=== PATIENT | female | born 1975 | race Caucasian/White ===

== ENCOUNTER 2016-09-06 18:40 | Emergency (ER) | payer MEDICAID, MEDICARE ==
[2016-09-06] MEDS ORDERED: NORMAL SALINE 1000 ML 1,000 ML IV ONE (18:57)
[2016-09-06] MEDS ORDERED: MECLIZINE HCL 25 MG TABLET PO ONE ×2 (18:58→19:52)
--- NOTE | 2016-09-06 19:00 | ER Document Report ---
ED Medical Screen (RME) - General Chief Complaint: Dizziness Stated Complaint: DIZZINESS Time Seen by Provider: 09/06/16 18:57 TRAVEL OUTSIDE OF THE U.S. IN LAST 30 DAYS: No - HPI Notes: 09/06/16 19:00 Patient recently moved from [place] with diagnosis stage IV lung cancer not currently undergoing any chemotherapy or radiation does not have a primary care physician yet coming in for dizziness starting this morning. States symptoms are similar to her vertigo in the past. - Related Data Allergies/Adverse Reactions: aspirin Allergy (Verified 09/06/16 18:48) Penicillins Allergy (Verified 09/06/16 18:48) Past Medical History Renal/ Medical History: Denies: Hx Peritoneal Dialysis Review of Systems - Review of Systems Constitutional: Other - dizzines Physical Exam - Vital signs Vitals: Temp Pulse Resp BP Pulse Ox 98.1 F 87 24 H 141/72 H 95 09/06/16 18:48 09/06/16 18:48 09/06/16 18:48 09/06/16 18:48 09/06/16 18:48 - HEENT Head: Normocephalic Eyes: Normal Conjunctiva: Normal Pupils: PERRL Course - Vital Signs Vital signs: Temp Pulse Resp BP Pulse Ox 98.1 F 87 24 H 141/72 H 95 09/06/16 18:48 09/06/16 18:48 09/06/16 18:48 09/06/16 18:48 09/06/16 18:48
--- NOTE | 2016-09-06 19:00 | ER Document Report ---
ED General - General Chief Complaint: Dizziness Stated Complaint: DIZZINESS Time Seen by Provider: 09/06/16 18:57 TRAVEL OUTSIDE OF THE U.S. IN LAST 30 DAYS: No - HPI Notes: Patient recently moved from [place] with diagnosis stage IV lung cancer not currently undergoing any chemotherapy or radiation does not have a primary care physician yet coming in for dizziness starting this morning. States symptoms are similar to her vertigo in the past. - Related Data Allergies/Adverse Reactions: aspirin Allergy (Verified 09/06/16 18:48) Penicillins Allergy (Verified 09/06/16 18:48) Past Medical History - Social History Patient has suicidal ideation: No Patient has homicidal ideation: No Renal/ Medical History: Denies: Hx Peritoneal Dialysis Review of Systems - Review of Systems Constitutional: No symptoms reported EENT: No symptoms reported Cardiovascular: No symptoms reported Respiratory: No symptoms reported Gastrointestinal: No symptoms reported Genitourinary: No symptoms reported Female Genitourinary: No symptoms reported Musculoskeletal: No symptoms reported Skin: No symptoms reported Hematologic/Lymphatic: No symptoms reported Neurological/Psychological: Other - Dizziness Physical Exam - Vital signs Vitals: Temp Pulse Resp BP Pulse Ox 98.1 F 87 24 H 141/72 H 95 09/06/16 18:48 09/06/16 18:48 09/06/16 18:48 09/06/16 18:48 09/06/16 18:48 Interpretation: Normal - HEENT Pupils: PERRL - Respiratory Respiratory status: No respiratory distress Chest status: Nontender Breath sounds: Normal Chest palpation: Normal - Cardiovascular Rhythm: Regular Heart sounds: Normal auscultation Murmur: No - Back Back: Normal, Nontender - Extremities General upper extremity: Normal inspection, Nontender, Normal color, Normal ROM , Normal temperature General lower extremity: Normal inspection, Nontender, Normal color, Normal ROM , Normal temperature, Normal weight bearing. No: Dilan's sign Course - Vital Signs Vital signs: Temp Pulse Resp BP Pulse Ox 98.1 F 87 24 H 141/72 H 95 09/06/16 18:48 09/06/16 18:48 09/06/16 18:48 09/06/16 18:48 09/06/16 18:48
[2016-09-06 19:41] LABS: ABSOLUTE BASOPHILS # (AUTO) 0.1 10^3/uL (0.0-0.2); ABSOLUTE EOSINOPHILS # (AUTO) 0.2 10^3/uL (0.0-0.6); ABSOLUTE LYMPHOCYTES (AUTO) 3.2 10^3/uL (0.5-4.7); ABSOLUTE MONOCYTES (AUTO) 0.8 10^3/uL (0.1-1.4); ABSOLUTE NEUT (AUTO) 8.4 10^3/uL (1.7-8.2); BASOPHILS % (AUTO) 0.9 % (0-2); EOSINOPHILS % (AUTO) 1.4 % (0-6); HEMATOCRIT 42.9 % (36.0-47.0); HEMOGLOBIN 13.8 g/dL (12.0-15.5); HGB HCT DIFFERENCE -1.5; LYMPHOCYTES % (AUTO) 25.2 % (13-45); MEAN CORPUSCULAR HEMOGLOBIN 27.4 pg (27.0-33.4); MEAN CORPUSCULAR HGB CONC 32.2 g/dL (32.0-36.0); MEAN CORPUSCULAR VOLUME 85 fl (80-97); MONOCYTES % (AUTO) 6.3 % (3-13); RED BLOOD COUNT 5.04 10^6/uL (3.72-5.28); RED CELL DISTRIBUTION WIDTH 13.5 % (11.5-14.0); SEGMENTED NEUTROPHILS % (AUTO) 66.2 % (42-78); WHITE BLOOD COUNT 12.7 10^3/uL (4.0-10.5)
--- NOTE | 2016-09-06 19:53 | ER Document Report ---
ED General - General Chief Complaint: Dizziness Stated Complaint: DIZZINESS Time Seen by Provider: 09/06/16 18:57 Notes: Patient is a 41-year-old female who comes emergency department for chief complaint of lightheadedness and a dizziness sensation, she states that she has frequent vertigo but slightly worse than usual. She denies nausea or vomiting, head injury, fever. She states she has a headache across the front of her head and wrapping around to the back. Past medical history of stage IV lung cancer, she is not on chemotherapy or radiation, she has opted out of treatment, she is also type II diabetic, insulin-dependent, and has been out of insulin for 3 days. She is new to the area from [place], here with family. TRAVEL OUTSIDE OF THE U.S. IN LAST 30 DAYS: No - Related Data Allergies/Adverse Reactions: aspirin Allergy (Verified 09/06/16 18:48) Penicillins Allergy (Verified 09/06/16 18:48) Past Medical History - General Information source: Patient - Social History Smoking Status: Former Smoker Frequency of alcohol use: None Drug Abuse: None Lives with: Family Family History: Reviewed & Not Pertinent Patient has suicidal ideation: No Patient has homicidal ideation: No Endocrine Medical History: Reports: Hx Diabetes Mellitus Type 2 Renal/ Medical History: Denies: Hx Peritoneal Dialysis Malignancy Medical History: Reports: Hx Lung Cancer Surgical Hx: Negative - Immunizations Immunizations up to date: Yes Hx Diphtheria, Pertussis, Tetanus Vaccination: Yes Review of Systems - Review of Systems Constitutional: No symptoms reported EENT: No symptoms reported Cardiovascular: No symptoms reported Respiratory: No symptoms reported Gastrointestinal: No symptoms reported Genitourinary: No symptoms reported Female Genitourinary: No symptoms reported Musculoskeletal: No symptoms reported Skin: No symptoms reported Hematologic/Lymphatic: No symptoms reported Neurological/Psychological: See HPI Physical Exam - Vital signs Vitals: Temp Pulse Resp BP Pulse Ox 98.1 F 87 24 H 141/72 H 95 09/06/16 18:48 09/06/16 18:48 09/06/16 18:48 09/06/16 18:48 09/06/16 18:48 Interpretation: Normal - General General appearance: Appears well, Alert In distress: None - alert and well appearing - HEENT Head: Normocephalic, Atraumatic Eyes: Normal Conjunctiva: Normal Extraocular movements intact: Yes Eyelashes: Normal Pupils: PERRL Nasal: Normal Mouth/Lips: Normal Mucous membranes: Normal Pharynx: Normal Neck: Normal - Respiratory Respiratory status: No respiratory distress Chest status: Nontender Breath sounds: Normal Chest palpation: Normal - Cardiovascular Rhythm: Regular Heart sounds: Normal auscultation Murmur: No - Abdominal Inspection: Normal Distension: No distension Bowel sounds: Normal Tenderness: Nontender. No: Tender Organomegaly: No organomegaly - Back Back: Normal, Nontender - Extremities General upper extremity: Normal inspection, Nontender, Normal color, Normal ROM , Normal temperature General lower extremity: Normal inspection, Nontender, Normal color, Normal ROM , Normal temperature, Normal weight bearing. 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 No nystagmus. No instability. No vomiting. Patient does not appear to be in any distress. After meclizine, IV fluids, patient was reevaluated and she was significantly improved. No dizziness with head turning, Only became slightly lightheaded when standing, orthostatics are normal. Workup is unremarkable. Patient was also given Ativan. Patient stating she feels 100%, states she is ready to leave. I did discuss CAT scan for potential metastasis to the brain, however because patient does not have headache, symptoms have completely resolved, this will not be performed, patient does not want this to be performed, patient given scripts for home, she states she has outpatient primary followup, discussed return precautions, patient states understanding and agreement. - Vital Signs Vital signs: Temp Pulse Resp BP Pulse Ox 98 F 88 18 149/87 H 99 09/06/16 22:28 09/06/16 22:28 09/06/16 22:28 09/06/16 22:28 09/06/16 22:28 - Laboratory Result Diagrams: 09/06/16 19:27 09/06/16 19:27 Laboratory results interpreted by me: 09/06/16 09/06/16 19:27 19:27 WBC 12.7 H Absolute Neutrophils 8.4 H Glucose 121 H Discharge - Discharge Clinical Impression: Dizziness Condition: Stable Disposition: HOME, SELF-CARE Instructions: Antinausea Medication ([facility]), Dizziness ([facility]), Meclizine ([facility]), Vertigo ([facility]) Additional Instructions: Workup does not show any concerning abnormalities. Neurological exam is normal. Symptoms most consistent with vertigo. Take the meclizine as prescribed, take the Ativan if needed, follow-up with primary care referral return to emergency department for any concerning. Worsening symptoms including returned dizziness, headache, vomiting, or any other concerning symptoms. Prescriptions: Lorazepam [Ativan 0.5 mg Tablet] 0.5 mg PO Q4 PRN #12 tab PRN Reason: Meclizine HCl [Antivert 25 mg Tablet] 25 mg PO TID PRN #21 tablet PRN Reason: Forms: Elevated Blood Pressure
[2016-09-06 19:59] LABS: ALANINE AMINOTRANSFERASE 24 U/L (9-52); ALBUMIN 3.5 g/dL (3.5-5.0); ALKALINE PHOSPHATASE 68 U/L (38-126); ANION GAP 9 (5-19); ASPARTATE AMINO TRANSFERASE 14 U/L (14-36); BILIRUBIN,DIRECT 0.3 mg/dL (0.0-0.4); BILIRUBIN,TOTAL 0.4 mg/dL (0.2-1.3); BLOOD UREA NITROGEN 10 mg/dL (7-20); CALCIUM 8.5 mg/dL (8.4-10.2); CARBON DIOXIDE 24 mmol/L (22-30); CHLORIDE 104 mmol/L (98-107); CREATININE RESULT 0.59 mg/dL (0.52-1.25); GLUCOSE 121 mg/dL (75-110); LIPASE 79.6 U/L (23-300); POTASSIUM 4.1 mmol/L (3.6-5.0); SODIUM 137.1 mmol/L (137-145); TOTAL PROTEIN 6.6 g/dL (6.3-8.2)
[2016-09-06] MEDS ORDERED: LORAZEPAM 1 MG TABLET PO ONE (21:16)
[2016-09-06 22:31] VITALS: BP 149/87
== END 2016-09-06 22:32 | disposition home or self-care (01) ==
LOC: ER 18:40
DX: R42 Dizziness and giddiness (principal); R51 Headache; E11.9 Type 2 diabetes mellitus without complications; Z79.4 Long term (current) use of insulin; C34.90 Malignant neoplasm of unspecified part of unspecified bronchus or lung; Z88.6 Allergy status to analgesic agent; Z88.0 Allergy status to penicillin; Z87.891 Personal history of nicotine dependence
CPT/HCPCS: 99284; 96360; 36415; 83690; 85025; 80053; J7030

== ENCOUNTER 2017-04-04 09:01 | Emergency (ER) | payer MEDICAID ==
[2017-04-04] MEDS ORDERED: NORMAL SALINE 1000 ML 1,000 ML IV ONE (10:12)
[2017-04-04] MEDS ORDERED: ONDANSETRON HCL INJ/PF 4 MG/2 ML SDV IV ONE (10:12)
[2017-04-04] MEDS ORDERED: MORPHINE SULFATE 10 MG/ML INJ IV ONE (10:13)
--- NOTE | 2017-04-04 10:13 | ER Document Report ---
ED Medical Screen (RME) - General Chief Complaint: Abdominal Pain Stated Complaint: ABDOMINAL PAIN Time Seen by Provider: 04/04/17 10:02 Mode of Arrival: Wheelchair Information source: Patient Notes: Patient is a 42 year old female with Stage 3 Lung Cancer and diabetes presents to the emergency department complaining of left upper quadrant abdominal pain onset months ago worsening 2 days ago. Patient describes her pain as waxing and waning. Patient also complains of vomiting, blood in stool and diaphoresis. At bedside patient is moaning and diaphoretic. I have greeted and performed a rapid initial assessment of this patient. A comprehensive ED assessment and evaluation of the patient, analysis of test results and completion of the medical decision making process will be conducted by additional ED providers. TRAVEL OUTSIDE OF THE U.S. IN LAST 30 DAYS: No - Related Data Allergies/Adverse Reactions: aspirin Allergy (Verified 09/06/16 18:48) Penicillins Allergy (Verified 09/06/16 18:48) Past Medical History Endocrine Medical History: Reports: Hx Diabetes Mellitus Type 2 Renal/ Medical History: Denies: Hx Peritoneal Dialysis Malignancy Medical History: Reports: Hx Lung Cancer Past Surgical History: Reports: Hx Section - Immunizations Immunizations up to date: Yes Hx Diphtheria, Pertussis, Tetanus Vaccination: Yes Physical Exam - Vital signs Vitals: Temp Pulse Resp BP Pulse Ox 98.4 F 87 24 H 152/80 H 100 04/04/17 09:24 04/04/17 09:24 04/04/17 09:24 04/04/17 09:24 04/04/17 09:24 - Notes Notes: GENERAL: Alert, interacts well. No acute distress. LUNGS: Clear to auscultation bilaterally, no wheezes, rales, or rhonchi. No respiratory distress. HEART: Regular rate and rhythm. No murmurs, gallops, or rubs. ABDOMEN: Exquisitely tender to palpation in the LUQ. Course - Vital Signs Vital signs: Temp Pulse Resp BP Pulse Ox 97.9 F 105 H 16 102/78 97 04/04/17 09:51 04/04/17 09:51 04/04/17 09:51 04/04/17 09:51 04/04/17 09:51 Scribe Documentation - Scribe Written by Roxanna:: Roxanna Brooks, 04/04/2017 10:13 acting as scribe for :: Stepan
[2017-04-04 10:36] LABS: ABSOLUTE EOSINOPHILS # (AUTO) 0.3 10^3/uL (0.0-0.6); ABSOLUTE LYMPHOCYTES (AUTO) 3.8 10^3/uL (0.5-4.7); ABSOLUTE MONOCYTES (AUTO) 0.8 10^3/uL (0.1-1.4); ABSOLUTE NEUT (AUTO) 8.4 10^3/uL (1.7-8.2); BASOPHILS % (AUTO) 0.3 % (0-2); EOSINOPHILS % (AUTO) 2.3 % (0-6); HEMATOCRIT 43.1 % (36.0-47.0); HEMOGLOBIN 14.4 g/dL (12.0-15.5); LYMPHOCYTES % (AUTO) 28.5 % (13-45); MEAN CORPUSCULAR HEMOGLOBIN 27.9 pg (27.0-33.4); MEAN CORPUSCULAR HGB CONC 33.5 g/dL (32.0-36.0); MEAN CORPUSCULAR VOLUME 83 fl (80-97); MONOCYTES % (AUTO) 6.2 % (3-13); PLATELET COUNT 261 10^3/uL (150-450); RED BLOOD COUNT 5.17 10^6/uL (3.72-5.28); RED CELL DISTRIBUTION WIDTH 13.3 % (11.5-14.0); SEGMENTED NEUTROPHILS % (AUTO) 62.7 % (42-78); TOTAL CELLS COUNTED % (AUTO) 100 %; WHITE BLOOD COUNT 13.4 10^3/uL (4.0-10.5)
[2017-04-04 11:00] LABS: ALANINE AMINOTRANSFERASE 26 U/L (9-52); ALBUMIN 3.9 g/dL (3.5-5.0); ALKALINE PHOSPHATASE 70 U/L (38-126); ANION GAP 7 (5-19); ASPARTATE AMINO TRANSFERASE 37 U/L (14-36); BILIRUBIN,DIRECT 0.3 mg/dL (0.0-0.4); BILIRUBIN,TOTAL 0.4 mg/dL (0.2-1.3); BLOOD UREA NITROGEN 11 mg/dL (7-20); CALCIUM 9.3 mg/dL (8.4-10.2); CARBON DIOXIDE 29 mmol/L (22-30); CHLORIDE 101 mmol/L (98-107); GLUCOSE 269 mg/dL (75-110); LIPASE 110.9 U/L (23-300); MAGNESIUM 1.8 mg/dL (1.6-2.3); POTASSIUM 4.6 mmol/L (3.6-5.0); SODIUM 137.1 mmol/L (137-145); TOTAL PROTEIN 7.1 g/dL (6.3-8.2)
[2017-04-04] MEDS ORDERED: DIPHENHYDRAMINE HCL 50 MG/ML VIAL IV ONE (11:41)
--- NOTE | 2017-04-04 12:02 | EKG REPORT ---
SEVERITY:- ABNORMAL ECG - SINUS RHYTHM : Confirmed by: Nahun Sousa 04-Apr-2017 12:02:18
--- NOTE | 2017-04-04 12:23 | RADIOLOGY REPORT (SQ) ---
EXAM DESCRIPTION: KUB/ABDOMEN (SINGLE VIEW) COMPLETED DATE/TIME: 04/04/2017 12:16 pm REASON FOR STUDY: abd pain distension COMPARISON: None. NUMBER OF VIEWS: One view. TECHNIQUE: Supine radiographic image of the abdomen acquired. LIMITATIONS: None. FINDINGS: BOWEL GAS PATTERN: Normal bowel gas pattern. No dilated loops. CALCIFICATIONS: No suspicious calcifications. SOFT TISSUES: No gross mass or suggestion of organomegaly. HARDWARE: None in the abdomen. BONES: No acute fracture. No worrisome bone lesions. OTHER: No other significant finding. IMPRESSION: NO RADIOGRAPHIC EVIDENCE FOR ACUTE ABDOMINAL DISEASE. TECHNICAL DOCUMENTATION: JOB ID: [id number] [employer]- All Rights Reserved
--- NOTE | 2017-04-04 12:37 | ER Document Report ---
ED General - General Chief Complaint: Abdominal Pain Stated Complaint: ABDOMINAL PAIN Time Seen by Provider: 04/04/17 10:02 Mode of Arrival: Wheelchair Information source: Patient Notes: 42-year-old female presents with complaints of left upper quadrant abdominal pain. Patient notes symptoms have been ongoing for the past month but over the past few days it has worsened. She notes it is a gnawing sensation in the abdomen. She denies any fevers or chills denies any vomiting episodes Patient notes clot like blood in stool TRAVEL OUTSIDE OF THE U.S. IN LAST 30 DAYS: No - HPI Onset: Other Onset/Duration: Persistent, Worse Quality of pain: Cramping Severity: Mild Pain Level: 1 Associated symptoms: Other Exacerbated by: Denies Relieved by: Denies Similar symptoms previously: No Recently seen / treated by doctor: No - Related Data Allergies/Adverse Reactions: aspirin Allergy (Verified 09/06/16 18:48) Penicillins Allergy (Verified 09/06/16 18:48) Past Medical History - General Information source: Patient - Social History Smoking Status: Former Smoker Cigarette use (# per day): No Chew tobacco use (# tins/day): No Smoking Education Provided: No Frequency of alcohol use: None Drug Abuse: None Family History: Reviewed & Not Pertinent Patient has suicidal ideation: No Patient has homicidal ideation: No - Past Medical History Cardiac Medical History: Reports: Hx Hypertension Endocrine Medical History: Reports: Hx Diabetes Mellitus Type 1, Hx Diabetes Mellitus Type 2 Renal/ Medical History: Denies: Hx Peritoneal Dialysis Malignancy Medical History: Reports: Hx Lung Cancer Past Surgical History: Reports: Hx Section - Immunizations Immunizations up to date: Yes Hx Diphtheria, Pertussis, Tetanus Vaccination: Yes Review of Systems - Review of Systems Notes: REVIEW OF SYSTEMS: CONSTITUTIONAL : Denies fever, chills, or sweats. Denies recent illness. EENT: Denies eye, ear, throat, or mouth pain or symptoms. Denies nasal or sinus congestion or discharge. Denies throat, tongue, or mouth swelling or difficulty swallowing. CARDIOVASCULAR: Denies chest pain. Denies palpitations or racing or irregular heart beat. Denies ankle edema. RESPIRATORY: Denies cough, cold, or chest congestion. Denies shortness of breath, difficulty breathing, or wheezing. GASTROINTESTINAL: abd pain , rectal blood clots GENITOURINARY: Denies difficulty urinating, painful urination, burning, frequency, blood in urine, or discharge. FEMALE GENITOURINARY: Denies vaginal bleeding, heavy or abnormal periods, irregular periods. Denies vaginal discharge or odor. MUSCULOSKELETAL: Denies back or neck pain or stiffness. Denies joint pain or swelling. SKIN: Denies rash, lesions or sores. HEMATOLOGIC : Denies easy bruising or bleeding. LYMPHATIC: Denies swollen, enlarged glands. NEUROLOGICAL: Denies confusion or altered mental status. Denies passing out or loss of consciousness. Denies dizziness or lightheadedness. Denies headache. Denies weakness or paralysis or loss of use of either side. Denies problems with gait or speech. Denies sensory loss, numbness, or tingling. Denies seizures. PSYCHIATRIC: Denies anxiety or stress. Denies depression, suicidal ideation, or homicidal ideation. ALL OTHER SYSTEMS REVIEWED AND NEGATIVE. PHYSICAL EXAMINATION: GENERAL: Obese female in mild acute distress moaning HEAD: Atraumatic, normocephalic. EYES: Pupils equal round and reactive to light, extraocular movements intact, conjunctiva are normal. ENT: Nares patent, oropharynx clear without exudates. Moist mucous membranes. NECK: Normal range of motion, supple without lymphadenopathy LUNGS: Breath sounds clear to auscultation bilaterally and equal. No wheezes rales or rhonchi. HEART: Regular rate and rhythm without murmurs ABDOMEN: Tender distended left upper quadrant Female : deferred Musculoskeletal: Normal range of motion, no pitting or edema. No cyanosis. NEUROLOGICAL: Cranial nerves grossly intact. Normal speech, normal gait. Normal sensory, motor exams PSYCH: Normal mood, normal affect. SKIN: Warm, Dry, normal turgor, no rashes or lesions noted. Dictation was performed using [employer] voice recognition software Physical Exam - Vital signs Vitals: Temp Pulse Resp BP Pulse Ox 98.4 F 87 24 H 152/80 H 100 04/04/17 09:24 04/04/17 09:24 04/04/17 09:24 04/04/17 09:24 04/04/17 09:24 Course - Re-evaluation Re-evalutation: 04/04/17 12:37 Lab work notes mild white count elevation, and emergent x-ray was performed given my concerns for possible perforation since patient was complaining of distended abdomen this noted no free air, CTs are pending at this time 04/04/17 13:[address] noted no significant abnormality, I reevaluate patient she feels much better wishes to go home. Nodule was noted on the right upper lobe which knows about and is planning to receive chemo and radiation for After performing a Medical Screening Examination, I estimate there is LOW risk for ACUTE APPENDICITIS, BOWEL OBSTRUCTION, ACUTE CHOLECYSTITIS, PERFORATED DIVERTICULITIS, INCARCERATED HERNIA, PANCREATITIS, PELVIC INFLAMMATORY DISEASE, PERFORATED ULCER, ECTOPIC , or TUBO-OVARIAN ABSCESS, thus I consider the discharge disposition reasonable. Also, there is no evidence or peritonitis , sepsis, or toxicity. I have reevaluated this patient multiple times and no significant life threatening changes are noted. The patient and I have discussed the diagnosis and risks, and we agree with discharging home with close follow-up with the understanding that symptoms and presentations can change. We also discussed returning to the Emergency Department immediately if new or worsening symptoms occur. We have discussed the symptoms which are most concerning (e.g., bloody stool, fever, changing or worsening pain, vomiting) that necessitate immediate return. - Vital Signs Vital signs: Temp Pulse Resp BP Pulse Ox 97.9 F 105 H 16 102/78 96 04/04/17 09:51 04/04/17 09:51 04/04/17 09:51 04/04/17 09:51 04/04/17 11:27 - Laboratory Result Diagrams: 04/04/17 10:18 04/04/17 10:18 Laboratory results interpreted by me: 04/04/17 04/04/17 10:18 10:18 WBC 13.4 H Absolute Neutrophils 8.4 H Glucose 269 H AST 37 H - Diagnostic Test Radiology reviewed: Image reviewed, Reports reviewed Discharge - Discharge Clinical Impression: Pulmonary nodule, Epigastric pain Stomach ulcer Qualifiers: Gastric ulcer chronicity: acute Gastric ulcer complication status: without hemorrhage or perforation Qualified Code(s): K25.3 - Acute gastric ulcer without hemorrhage or perforation Condition: Stable Disposition: HOME, SELF-CARE Instructions: Abdominal Pain ([facility]) Prescriptions: Famotidine [Pepcid 20 mg Tablet] 20 mg PO DAILY #30 tablet Oxycodone HCl/Acetaminophen [Percocet 5-325 mg Tablet] 1 tab PO Q6 #15 tab Referrals: EMMETT LEMON MD [ACTIVE STAFF] - Follow up in 3-5 days
[2017-04-04] MEDS ORDERED: HYDROMORPHONE HCL INJ/PF 2 MG/ML AMPULE IV ONE (12:50)
--- NOTE | 2017-04-04 13:28 | RADIOLOGY REPORT (SQ) ---
EXAM DESCRIPTION: CT ABD/PELVIS WITH IV ONLY COMPLETED DATE/TIME: 04/04/2017 1:19 pm REASON FOR STUDY: LUQ pain and swelling COMPARISON: None. TECHNIQUE: CT scan of the abdomen and pelvis performed using helical scanning technique with dynamic intravenous contrast injection. No oral contrast. Images reviewed with lung, soft tissue, and bone windows. Reconstructed coronal and sagittal MPR images reviewed. Delayed images for evaluation of the urinary system also acquired. All images stored on PACS. All CT scanners at this facility use dose modulation, iterative reconstruction, and/or weight based d osing when appropriate to reduce radiation dose to as low as reasonably achievable (ALARA). [facility]: Dose Right [facility]: CareDose [facility]: Dose Right [facility]: Teradose 4D [facility]: [employer] CONTRAST TYPE AND DOSE: contrast/concentration: Isovue 370.00 mg/ml; Total Contrast Delivered: 99.0 ml; Total Saline Delivered: 54.4 ml RENAL FUNCTION: BUN 11 creatinine 0.56. RADIATION DOSE: . LIMITATIONS: None. FINDINGS: LOWER CHEST: No significant findings. No nodules or infiltrates. LIVER: Enlarged, measuring 20 cm. Diffuse fatty infiltration. No masses. No dilated ducts. SPLEEN: Normal size. No focal lesions. PANCREAS: No masses. No significant calcifications. No adjacent inflammation or peripancreatic fluid collections. Pancreatic duct not dilated. GALLBLADDER: No identified stones by CT criteria. No inflammatory changes to suggest cholecystitis. ADRENAL GLANDS: No significant masses or asymmetry. RIGHT KIDNEY AND URETER: No solid masses. No significant calcifications. No hydronephrosis or hyd roureter. LEFT KIDNEY AND URETER: No solid masses. No significant calcifications. No hydronephrosis or hydr oureter. AORTA AND VESSELS: No aneurysm. No dissection. Renal arteries, SMA, celiac without stenosis. RETROPERITONEUM: No retroperitoneal adenopathy, hemorrhage or masses. BOWEL AND PERITONEAL CAVITY: No masses or inflammatory changes. No free fluid or peritoneal masses. APPENDIX: Normal. PELVIS: No mass. No free fluid. Normal bladder. ABDOMINAL WALL: No masses. No hernias. BONES: No significant or acute findings. OTHER: No other significant finding. IMPRESSION: HEPATOMEGALY WITH DIFFUSE FATTY INFILTRATION OF THE LIVER. NO OTHER SIGNIFICANT OR ACUT E FINDING IN THE ABDOMEN OR PELVIS ON CT SCAN WITH IV CONTRAST. TECHNICAL DOCUMENTATION: JOB ID: [id number] Quality ID # [id number]: Final reports with documentation of one or more dose reduction techniques (e.g., Au tomated exposure control, adjustment of the mA and/or kV according to patient size, use of iterative reconstruction technique) 2010 [employer]- All Rights Reserved
--- NOTE | 2017-04-04 13:31 | RADIOLOGY REPORT (SQ) ---
EXAM DESCRIPTION: CT CHEST WITH COMPLETED DATE/TIME: 04/04/2017 1:19 pm REASON FOR STUDY: LUQ Pain, hx of lung cancer COMPARISON: None. TECHNIQUE: CT scan of the chest performed using helical scanning technique with dynamic intravenous contrast injection. Images reviewed with lung, soft tissue and bone windows. Reconstructed coronal and sagittal MPR images reviewed. All images stored on PACS. All CT scanners at this facility use dose modulation, iterative reconstruction, and/or weight based d osing when appropriate to reduce radiation dose to as low as reasonably achievable (ALARA). [facility]: Dose Right [facility]: CareDose [facility]: Dose Right [facility]: Teradose 4D [facility]: [employer] CONTRAST TYPE AND DOSE: 99 mL Isovue 370- low osmolar. RENAL FUNCTION: BUN 11 creatinine 0.56. RADIATION DOSE: CT Rad equipment meets quality standard of care and radiation dose reduction techniq ues were employed. CTDIvol: 21.1 - 21.1 mGy. DLP: 2820 mGy-cm. . LIMITATIONS: None. FINDINGS: LUNGS AND PLEURA: 3 mm nodule in the right upper lobe (series 5, image 18). No other nodu les or masses. No infiltrates. No pneumothorax. No effusions. HILAR AND MEDIASTINAL STRUCTURES: No identified masses or abnormal nodes. HEART AND VASCULAR STRUCTURES: No aneurysm or dissection. No central pulmonary emboli. No pericardi al effusion. HARDWARE: None in the chest. UPPER ABDOMEN: No significant findings. Limited exam. THYROID AND OTHER SOFT TISSUES: No masses. No adenopathy. BONES: No significant finding. OTHER: No other significant finding. IMPRESSION: SMALL 3 MM NODULE IN THE RIGHT UPPER LOBE. FOLLOW-UP CLINICALLY INDICATED. NO OTHER SIGNIFICANT FINDINGS. COMMENT: F[place]NER CRITERIA FOR FOLLOW-UP OF PULMONARY NODULES Incidentally detected new nodules in persons 35 or older. HIGH RISK: History of smoking or other known risk factors. <6mm single solid nodule: LOW RISK: no routine followup. HIGH RISK: optional CT 12 mo. TECHNICAL DOCUMENTATION: JOB ID: [id number] Quality ID # [id number]: Final reports with documentation of one or more dose reduction techniques (e.g., Au tomated exposure control, adjustment of the mA and/or kV according to patient size, use of iterative reconstruction technique) 2010 [id number]- All Rights Reserved
[2017-04-04 14:50] VITALS: BP 126/80
== END 2017-04-04 14:50 | disposition home or self-care (01) ==
LOC: ER 09:01
DX: K25.3 Acute gastric ulcer without hemorrhage or perforation (principal); R91.1 Solitary pulmonary nodule; R10.13 Epigastric pain; R10.12 Left upper quadrant pain; I10 Essential (primary) hypertension; E11.9 Type 2 diabetes mellitus without complications; Z88.0 Allergy status to penicillin; Z88.6 Allergy status to analgesic agent; Z87.891 Personal history of nicotine dependence; Z85.118 Personal history of other malignant neoplasm of bronchus and lung
CPT/HCPCS: 93005; 99285; 96361; 96374; 96375; 36415; 83690; 83735; 84703; 85025; 80053; 74018; 71260; 74177; 93010; J1200; J2270; J1170; J2405; J7030

== ENCOUNTER → 2017-07-22 | Outpatient (CLI) | payer MEDICAID ==
--- NOTE | 2017-07-22 20:06 | RADIOLOGY REPORT (SQ) ---
EXAM DESCRIPTION: NM WHOLE BODY BONE SCAN COMPLETED DATE/TIME: 07/22/2017 2:38 pm REASON FOR STUDY: C34.91 MALIGNANT NEOPLASM OF UNSP PART OF RIGHT BRONCHUS OR LUNG C34.91 MALIGNANT NEOPLASM OF UNSP PART OF RIGHT BRONCHUS OR COMPARISON: CT chest abdomen pelvis 04/04/2017 RADIONUCLIDE AND DOSE: 21.8 millicuries Tc99m MDP. The route of agent administration: Intravenous. ADDITIONAL DRUGS AND DOSES: None. TECHNIQUE: Routine delayed images at 3 hours post radionuclide injection acquired of the bony skelet on including anterior and posterior whole-body projections and additional focused images as needed. LIMITATIONS: None. FINDINGS: BONES: No increased uptake worrisome for bony metastatic disease given history of lung can cer. There is increased uptake at the bilateral shoulders, hips, knees, and ankles related to osteoarthrit is. KIDNEYS: Symmetric excretion without obstruction. OTHER: No other significant finding. IMPRESSION: Multifocal osteoarthritis. COMMENT: Quality measure 147: Current bone scan is compared with any available plain radiographs, p rior bone scans, and CT/MRI. TECHNICAL DOCUMENTATION: JOB ID: [id number] [employer]- All Rights Reserved Reading location - IP/workstation name: [email or web address]
== END ==
LOC: RAD 10:58
PROVIDERS: ATTEND Anesthesiology Pain Medicine
DX: C34.91 Malignant neoplasm of unspecified part of right bronchus or lung (principal)
CPT/HCPCS: 78306; A9561; Q9969

== ENCOUNTER 2018-01-17 17:19 | Observation (INO) | payer MEDICAID ==
[2018-01-17] MEDS ORDERED: IPRATROPIUM/ALBUTEROL 0.5-2.5 MG/3 ML AMPUL NEB ONE ×2 (19:06→20:17)
[2018-01-17] MEDS ORDERED: METHYLPREDNISOLONE INJ 125 MG/2 ML SDV IV ONE (19:06)
--- NOTE | 2018-01-17 19:07 | ER Document Report ---
ED Medical Screen (RME) - General Chief Complaint: Shortness Of Breath Stated Complaint: COUGH/BREATHING PROBLEMS Time Seen by Provider: 01/17/18 19:05 Notes: 42 years old female former smoker presents today with body aches and pain feverish, coughing coughing up phlegm as well as difficulty in breathing and wheezing. Obese, decreased breath sounds with scattered wheezes TRAVEL OUTSIDE OF THE [place] IN LAST 30 DAYS: No - Related Data Allergies/Adverse Reactions: aspirin Allergy (Verified 01/17/18 17:26) Penicillins Allergy (Verified 01/17/18 17:26) Past Medical History - Past Medical History Cardiac Medical History: Reports: Hx Hypertension Endocrine Medical History: Reports: Hx Diabetes Mellitus Type 1, Hx Diabetes Mellitus Type 2 Renal/ Medical History: Denies: Hx Peritoneal Dialysis Malignancy Medical History: Reports: Hx Lung Cancer Past Surgical History: Reports: Hx Section - Immunizations Immunizations up to date: Yes Hx Diphtheria, Pertussis, Tetanus Vaccination: Yes Physical Exam - Vital signs Vitals: Temp Pulse Resp BP Pulse Ox 98.9 F 108 H 20 152/90 H 94 01/17/18 17:38 01/17/18 17:38 01/17/18 17:38 01/17/18 17:38 01/17/18 17:38 Course - Vital Signs Vital signs: Temp Pulse Resp BP Pulse Ox 98.9 F 108 H 20 152/90 H 94 01/17/18 17:38 01/17/18 17:38 01/17/18 17:38 01/17/18 17:38 01/17/18 17:38 Doctor's Discharge - Discharge Referrals: SHADI CASTILLO MD [Primary Care Provider] - Follow up as needed
[2018-01-17] MEDS ORDERED: METHYLPREDNISOLONE INJ 125 MG/2 ML SDV IM ONE (19:11)
[2018-01-17] MEDS: ALBUTEROL SULFATE 0.083% NEB 2.5 MG/3 ML AMPUL NEB SCH ×2 (19:13→19:42)
--- NOTE | 2018-01-17 19:51 | RADIOLOGY REPORT (SQ) ---
EXAM DESCRIPTION: CHEST SINGLE VIEW COMPLETED DATE/TIME: 01/17/2018 7:40 pm REASON FOR STUDY: Cough COMPARISON: CT 04/04/2017. NUMBER OF VIEWS: One view. TECHNIQUE: Single frontal radiographic view of the chest acquired. LIMITATIONS: None. FINDINGS: LUNGS AND PLEURA: Clear. Well-marginated density along the right heart border corresponds with prominent mediastinal fat based on the CT. MEDIASTINUM AND HILAR STRUCTURES: No masses. Contour normal. HEART AND VASCULAR STRUCTURES: Heart normal in size. Normal vasculature. BONES: No acute findings. HARDWARE: None in the chest. OTHER: No other significant finding. IMPRESSION: NO SIGNIFICANT RADIOGRAPHIC FINDING IN THE CHEST. TECHNICAL DOCUMENTATION: JOB ID: [id number] [employer]- All Rights Reserved Reading location - IP/workstation name: [email or web address]
--- NOTE | 2018-01-17 19:58 | ER Document Report ---
ED General - General Chief Complaint: Shortness Of Breath Stated Complaint: COUGH/BREATHING PROBLEMS Time Seen by Provider: 01/17/18 19:05 Notes: Patient is a 42-year-old female who presents to the emergency department for cough times 2 days. She states she feels like she was hit by a truck. Attempted to take multiple [id number]-axcwzzt medications to help with her cough, with no success. Lying down makes her cough worse. She has a history of bilateral pneumonia, hypertension, and diabetes. She states she has not been taking her blood pressure medication for the past 3 days. She denies any sick contacts. TRAVEL OUTSIDE OF THE [place] IN LAST 30 DAYS: No - Related Data Allergies/Adverse Reactions: aspirin Allergy (Verified 01/17/18 17:26) morphine Allergy (Verified 01/17/18 19:11) Penicillins Allergy (Verified 01/17/18 17:26) Past Medical History - Social History Smoking Status: Former Smoker Family History: Reviewed & Not Pertinent Patient has suicidal ideation: No Patient has homicidal ideation: No - Past Medical History Cardiac Medical History: Reports: Hx Hypertension Endocrine Medical History: Reports: Hx Diabetes Mellitus Type 1, Hx Diabetes Mellitus Type 2 Renal/ Medical History: Denies: Hx Peritoneal Dialysis Malignancy Medical History: Reports: Hx Lung Cancer Past Surgical History: Reports: Hx Section - Immunizations Immunizations up to date: Yes Hx Diphtheria, Pertussis, Tetanus Vaccination: Yes Review of Systems - Review of Systems Notes: REVIEW OF SYSTEMS: CONSTITUTIONAL : Denies recent illness. Denies recent unintentional weight loss. Denies fever, chills, or sweats. EENT: Denies eye, ear, throat, or mouth pain, discharge, or symptoms. Denies nasal or sinus congestion. CARDIOVASCULAR: See HPI and course RESPIRATORY: See HPI. GASTROINTESTINAL: Denies nausea, vomiting, and diarrhea. Denies abdominal pain. Denies constipation. Last BM: GENITOURINARY: Denies difficulty urinating, burning, blood in urine, urgency or frequency. MUSCULOSKELETAL: Denies neck and back pain. Denies joint pain or swelling. SKIN: Denies rash, itchiness, or lesions HEMATOLOGIC : Denies easy bruising or bleeding. LYMPHATIC: Denies swollen, painful, enlarged glands. NEUROLOGICAL: Denies no numbness or tingling denies weakness. Denies headache. Denies altered mental status. Denies alteration in speech. PSYCHIATRIC: Denies stress, anxiety, alteration in sleep patterns, or depression. Physical Exam - Vital signs Vitals: Temp Pulse Resp BP Pulse Ox 98.9 F 108 H 20 152/90 H 94 01/17/18 17:38 01/17/18 17:38 01/17/18 17:38 01/17/18 17:38 01/17/18 17:38 - Notes Notes: PHYSICAL EXAMINATION: GENERAL: Appears well, healthy, well-nourished, no acute distress. HEAD: Normocephalic, atraumatic. EYES: PERRL, conjunctiva normal, all extraocular movements intact, sclera nonicteric ENT: Moist mucous membranes. NECK: Supple, no noticeable swelling, redness, rash. Normal range of motion. LUNGS: Bilateral expiratory wheezes throughout. Tachypneic CARDIOVASCULAR:Tachycardiac S1-S2, regular rhythm. Radial pulses 2+, normal. ABDOMEN: Normoactive bowel sounds. Soft, nontender, no guarding, no rebound tenderness, and no masses palpated. EXTREMITIES: Normal strength and range of motion, no pitting or edema. No cyanosis. NEUROLOGICAL: Moves all extremities upon command. Strength 5/5 in all extremities. PSYCH: Normal mood, normal affect. SKIN: Warm, dry. No rash, lesions, ulcerations noted. Normal skin turgor. Course - Re-evaluation Re-evalutation: 01/17/18 20:17 On reevaluation of the patient, she states that she does have a sharp stabbing chest pain in the left side of her chest. Due to her medical history of hypertension and diabetes, a full set of labs with troponin will be ordered. Also, on reassessment of her breath sounds, she continues to have expiratory wheezes throughout. Another DuoNeb is ordered. 01/17/18 20:30 Chest x-ray is unremarkable at this time, ruling out pneumonia. Patient continues to have expiratory wheezes. 2 g magnesium sulfate IV will be ordered at this time. 01/17/18 21:00 Patient continues to have expiratory wheezes throughout. Another DuoNeb will be ordered. 01/17/18 23:00 After multiple DuoNeb treatments, 2 g magnesium IV, and Solu-Medrol 125 mg, patient continues to have wheezing. She states she feels better, but I do not feel she is safe for discharge at this time. Her oxygen saturation will sometimes drop to the low 90s. Her primary care doctor is Dr. Garner. I spoke with Dr. Villa (weekend coverage physician). For admission to the hospital, but he would like to wait for her BNP to result before he decides to admit her. 01/18/18 00:10 BNP is 106 at this time, ruling out CHF. I attempted to call Dr. Villa via the mononitrotoluene operator. He did not answer the call. If I do not hear back within 30 minutes, I will attempt to call again. I suspect the patient's symptoms are due to a COPD exacerbation, possibly new onset. 01/18/18 00:44 I have attempted to call Dr. Villa again via the mononitrotoluene operator. There again was no answer. I will attempt again in 30 minutes. 01/18/18 00:52 Dr. Villa has called me back. He has excepted admission for telemetry observation. I have ordered another DuoNeb treatment because she is still wheezing. - Vital Signs Vital signs: Temp Pulse Resp BP Pulse Ox 98.9 F 108 H 20 152/90 H 94 01/17/18 17:38 01/17/18 17:38 01/17/18 17:38 01/17/18 17:38 01/17/18 17:38 - Laboratory Result Diagrams: 01/17/18 21:31 01/17/18 21:31 Laboratory results interpreted by me: 01/17/18 01/17/18 21:31 21:31 WBC 11.2 H Seg Neutrophils % 83.1 H Lymphocytes % 12.1 L Absolute Neutrophils 9.4 H Potassium 3.5 L Glucose 173 H Discharge - Discharge Clinical Impression: COPD exacerbation Condition: Fair Disposition: ADMITTED OBSERVATION Admitting Provider: Daisy Unit Admitted: Telemetry Referrals: SHADI CASTILLO MD [NO LOCAL MD] - Follow up as needed
[2018-01-17] MEDS: MAGNESIUM SULFATE/D5W 1 GM/100 ML RTUPB IV SCH ×2 (20:44→22:44)
[2018-01-17] MEDS ORDERED: LISINOPRIL 5 MG TABLET PO ONE (20:46)
[2018-01-17 21:47] LABS: ABSOLUTE EOSINOPHILS # (AUTO) 0.1 10^3/uL (0.0-0.6); ABSOLUTE LYMPHOCYTES (AUTO) 1.4 10^3/uL (0.5-4.7); ABSOLUTE MONOCYTES (AUTO) 0.4 10^3/uL (0.1-1.4); ABSOLUTE NEUT (AUTO) 9.4 10^3/uL (1.7-8.2); BASOPHILS % (AUTO) 0.3 % (0-2); EOSINOPHILS % (AUTO) 0.8 % (0-6); HEMATOCRIT 41.6 % (36.0-47.0); HEMOGLOBIN 13.9 g/dL (12.0-15.5); LYMPHOCYTES % (AUTO) 12.1 % (13-45); MEAN CORPUSCULAR HEMOGLOBIN 28.6 pg (27.0-33.4); MEAN CORPUSCULAR HGB CONC 33.6 g/dL (32.0-36.0); MEAN CORPUSCULAR VOLUME 85 fl (80-97); MONOCYTES % (AUTO) 3.7 % (3-13); PLATELET COUNT 198 10^3/uL (150-450); RED BLOOD COUNT 4.88 10^6/uL (3.72-5.28); RED CELL DISTRIBUTION WIDTH 13.3 % (11.5-14.0); SEGMENTED NEUTROPHILS % (AUTO) 83.1 % (42-78); TOTAL CELLS COUNTED % (AUTO) 100 %; WHITE BLOOD COUNT 11.2 10^3/uL (4.0-10.5)
[2018-01-17 22:06] LABS: ANION GAP 13 (5-19); BLOOD UREA NITROGEN 12 mg/dL (7-20); CALCIUM 8.9 mg/dL (8.4-10.2); CARBON DIOXIDE 30 mmol/L (22-30); CHLORIDE 98 mmol/L (98-107); GLUCOSE 173 mg/dL (75-110); POTASSIUM 3.5 mmol/L (3.6-5.0); SODIUM 141.2 mmol/L (137-145)
[2018-01-18] MEDS ORDERED: LORAZEPAM 0.5 MG TABLET PO ONE (00:16)
[2018-01-18] MEDS ORDERED: IPRATROPIUM/ALBUTEROL 0.5-2.5 MG/3 ML AMPUL NEB ONE (00:55)
[2018-01-18] MEDS ORDERED: ACETAMINOPHEN 325 MG TABLET PO PRN (03:26)
[2018-01-18] MEDS ORDERED: DEXTROSE 40% GEL 15 GM TUBE PO PRN (03:31)
[2018-01-18] MEDS ORDERED: DEXTROSE 40% GEL 15 GM TUBE X 2 PO PRN (03:31)
[2018-01-18] MEDS ORDERED: DEXTROSE 50%-WATER SYRINGE 12.5 GM/25 ML DOSE IV PRN (03:31)
[2018-01-18] MEDS ORDERED: DEXTROSE 50%-WATER SYRINGE 25 GM/50 ML DOSE IV PRN (03:31)
[2018-01-18] MEDS ORDERED: INSULIN LISPRO 100 UNIT/ML 3 ML VIAL SUBCUT PRN (03:31)
[2018-01-18] MEDS ORDERED: GLUCAGON,HUMAN RECOMB 1 MG INJ IM PRN (03:31)
[2018-01-18] MEDS ORDERED: IPRATROPIUM/ALBUTEROL 0.5-2.5 MG/3 ML AMPUL NEB PRN (03:33)
[2018-01-18] MEDS: GUAIFENESIN SYRP 200 MG/10 ML UDC PO PRN ×2 (03:51→09:07)
[2018-01-18] MEDS ORDERED: METHYLPREDNISOLONE INJ 125 MG/2 ML SDV IV SCH (06:00)
--- NOTE | 2018-01-18 08:01 | EKG REPORT ---
SEVERITY:- BORDERLINE ECG - SINUS RHYTHM BORDERLINE R WAVE PROGRESSION, ANTERIOR LEADS : Confirmed by: Vern Mcdonald MD 18-Jan-2018 08:00:38
[2018-01-18 08:55] VITALS: BP 136/77
[2018-01-18] MEDS ORDERED: LISINOPRIL 5 MG TABLET PO SCH (10:00)
--- NOTE | 2018-01-18 11:03 | H&P/Discharge Summary ---
Discharge Summary Admission Date/PCP: 01/18/18 01:00 IVÁN ZAMORANO MD Resuscitation Status: Full Code - Discharge Diagnosis (1) COPD exacerbation Is this a current diagnosis for this admission?: Yes Summary: She will be discharged home on Symbicort and Ventolin HFA therapy. (2) Acute bronchitis Is this a current diagnosis for this admission?: Yes Summary: Start on Levofloxacin 500 mg p.o daily x 10 days and Prednisone tapering dose therapy. (3) Diabetes mellitus type 2 in obese Is this a current diagnosis for this admission?: Yes Summary: She will continue on Novolin 70/30 insulin 32 units sc qam and 34 units sq qpm. she was instructed to contact Dr. Zamorano office for need of dosage adjustment in view of her prednisone therapy. (4) HTN (hypertension) Is this a current diagnosis for this admission?: Yes Summary: She will remain on Lisinopril 5 mg po bid therapy for blood pressure management. (5) KERWIN (obstructive sleep apnea) Is this a current diagnosis for this admission?: Yes Summary: She will need sleep study for re-evaluation for CPAP machine. (6) Morbid obesity with BMI of 45.0-49.9, adult Is this a current diagnosis for this admission?: Yes Summary: I had extensive discussion with patient regarding weight management with caloric restriction, healthy food choices, and walking exercise routine. Home Medications: Lisinopril [Prinivil] 5 mg PO BID 01/18/18 Allergies/Adverse Reactions: aspirin Allergy (Verified 01/17/18 17:26) morphine Allergy (Verified 01/17/18 19:11) Penicillins Allergy (Verified 01/17/18 17:26) History of Present Illness Admission Date/PCP: 01/18/18 01:00 IVÁN ZAMORANO MD Patient complains of: Difficulty with breaathing History of Present Illness: LORRIE GUERRERO is a 42 year old female of Dr Zamorano who presented to the ED with complain of difficulty with breathing and associated productive coughing x 2 days. She described phlegm as yellowish and mucoid. she denied any associated chest pain, fever, sinus or nasal congestion/. She quit cigarette smoking about seven months ago. she admitted to use of Albuterol inhaler as rescue treatment in the past. Her initial evaluation and management in the ED was concerning for bronchospasm with COPD. Patient was not responding adequately to treatment and the ED doctor requested for admission further evaluation and treatment. At the time of my evaluation this morning she was comfortable in bed and conversing without any distress. She admitted to not using her CPAP machine because she lost the device during her coming to [place]. Her morbidities include hypertension, Diabetes Mellitus type 2, Obstructive sleep apnea, and morbid obesity. Patient insisted upon discharge home today because of her son. Past Medical History Cardiac Medical History: Reports: Hypertension Endocrine Medical History: Reports: Diabetes Mellitus Type 1, Diabetes Mellitus Type 2 Malignancy Medical History: Reports: Lung Cancer Past Surgical History Past Surgical History: Reports: Section Social History Smoking Status: Former Smoker Cigarettes Packs Per Day: 0.5 Last Time Smoked: 05/09/2017 Frequency of Alcohol Use: None Hx Recreational Drug Use: No Drugs: None Hx Prescription Drug Abuse: No - Advance Directive Resuscitation Status: Full Code Family History Family History: Reviewed & Not Pertinent Parental Family History Reviewed: Yes Children Family History Reviewed: Yes Sibling(s) Family History Reviewed.: Yes Review of Systems Constitutional: ABSENT: chills, fever(s), headache(s), weight gain, weight loss Eyes: ABSENT: visual disturbances Ears: ABSENT: hearing changes Nose, Mouth, and Throat: ABSENT: as per HPI, headache(s), mouth pain, sore throat, vertigo, other Cardiovascular: PRESENT: dyspnea on exertion - related to her ongoing acute illness Respiratory: PRESENT: cough, dyspnea, sputum. ABSENT: hemoptysis Gastrointestinal: ABSENT: abdominal pain, constipation, diarrhea, hematemesis, hematochezia, nausea, vomiting Genitourinary: ABSENT: dysuria, hematuria Musculoskeletal: ABSENT: joint swelling Integumentary: ABSENT: rash, wounds Neurological: ABSENT: abnormal gait, abnormal speech, confusion, dizziness, focal weakness, syncope Psychiatric: ABSENT: anxiety, depression, homidical ideation, suicidal ideation Endocrine: ABSENT: cold intolerance, heat intolerance, polydipsia, polyuria Hematologic/Lymphatic: ABSENT: easy bleeding, easy bruising Allergic/Immunologic: ABSENT: seasonal rhinorrhea Physical Exam Vital Signs: Temp Pulse Resp BP Pulse Ox 98.4 F 99 24 H 136/77 H 93 01/18/18 08:38 01/18/18 08:38 01/18/18 08:38 01/18/18 08:38 01/18/18 08:38 Intake & Output 01/17/18 01/18/18 01/19/18 06:59 06:59 06:59 Intake Total 472 Balance 472 Weight 146.9 kg General appearance: PRESENT: no acute distress, morbidly obese Head exam: PRESENT: atraumatic, normocephalic Eye exam: PRESENT: conjunctiva pink, EOMI, PERRLA. ABSENT: scleral icterus Ear exam: PRESENT: normal external ear exam Mouth exam: PRESENT: moist Neck exam: ABSENT: lymphadenopathy, thyromegaly Respiratory exam: PRESENT: clear to auscultation neo Cardiovascular exam: PRESENT: RRR. ABSENT: diastolic murmur, rubs, systolic murmur Vascular exam: PRESENT: normal capillary refill. ABSENT: pallor GI/Abdominal exam: PRESENT: normal bowel sounds, soft. ABSENT: distended, guarding, mass, organolmegaly, rebound, tenderness Rectal exam: PRESENT: deferred Extremities exam: ABSENT: pedal edema Musculoskeletal exam: PRESENT: ambulatory, normal inspection Neurological exam: PRESENT: alert, awake, oriented to person, oriented to place , oriented to time, oriented to situation, CN II-XII grossly intact. ABSENT: motor sensory deficit Psychiatric exam: PRESENT: appropriate affect, normal mood. ABSENT: homicidal ideation, suicidal ideation Skin exam: PRESENT: dry, intact, warm. ABSENT: cyanosis, rash Results Laboratory Results: I reviewed her lab results on [facility] and form significant part of my medical decision making. Impressions: Chest X-Ray 01/17/18 19:06 IMPRESSION: NO SIGNIFICANT RADIOGRAPHIC FINDING IN THE CHEST. Qualifiers - * PATIENT BEING DISCHARGED WITH ANY OF THE FOLLOWING DIAGNOSIS: No Assessment & Plan - Time Time Spent: 50 to 70 Minutes Medications reviewed and adjusted accordingly: Yes Anticipated dischagre: Home Within: within 24 hours - Plan Summary Plan Summary: She was managed with bronchodilators and IV Solu Medrol since admission. She will be discharged home with Symbicort and Albuterol HFA therapy as well as Levofloxacin 500 mg po daily x 10 days. She was instructed to follow up with Dr Zamorano next week.
[2018-01-18] MEDS ORDERED: POTASSIUM CHLORIDE 10 MEQ CAPSULE.ER PO SCH (12:00)
== END 2018-01-18 12:30 | disposition home or self-care (01) ==
LOC: ER 17:19 → EH 01-18 01:00 → 4N 01-18 02:11
PROVIDERS: ADMIT Internal Medicine Geriatric Medicine; ATTEND Internal Medicine Geriatric Medicine
DX: J44.1 Chronic obstructive pulmonary disease with (acute) exacerbation (principal); J20.9 Acute bronchitis, unspecified; J44.0 Chronic obstructive pulmonary disease with (acute) lower respiratory infection; E11.9 Type 2 diabetes mellitus without complications; I10 Essential (primary) hypertension; G47.33 Obstructive sleep apnea (adult) (pediatric); E66.01 Morbid (severe) obesity due to excess calories; R00.0 Tachycardia, unspecified; Z68.42 Body mass index [BMI] 45.0-49.9, adult; Z79.4 Long term (current) use of insulin; Z87.891 Personal history of nicotine dependence; Z85.118 Personal history of other malignant neoplasm of bronchus and lung; Z87.01 Personal history of pneumonia (recurrent)
CPT/HCPCS: 93005; 94640 ×2; 99285; 96375; 96365; 96366; 36415; 82962; 85025; 80048; 84484; 83880; 71045; 93010; 94660; G0378; J3490 ×4; J1815; J2930 ×2; J3475; J7620

== ENCOUNTER 2018-06-21 18:03 | Emergency (ER) | payer MEDICAID ==
--- NOTE | 2018-06-21 18:21 | RADIOLOGY REPORT (SQ) ---
EXAM DESCRIPTION: CHEST SINGLE VIEW COMPLETED DATE/TIME: 06/21/2018 6:14 pm REASON FOR STUDY: stroke s/s COMPARISON: 01/17/2018 EXAM PARAMETERS: NUMBER OF VIEWS: One view. TECHNIQUE: Single frontal radiographic view of the chest acquired. RADIATION DOSE: NA LIMITATIONS: None. FINDINGS: LUNGS AND PLEURA: No opacities, masses or pneumothorax. No pleural effusion. MEDIASTINUM AND HILAR STRUCTURES: No masses. Contour normal. HEART AND VASCULAR STRUCTURES: Heart normal in size. Normal vasculature. BONES: No acute findings. HARDWARE: None in the chest. OTHER: No other significant finding. IMPRESSION: NO ACUTE RADIOGRAPHIC FINDING IN THE CHEST. TECHNICAL DOCUMENTATION: JOB ID: [id number] [employer]- All Rights Reserved Reading location - IP/workstation name: [email or web address]
--- NOTE | 2018-06-21 18:21 | RADIOLOGY REPORT (SQ) ---
EXAM DESCRIPTION: CT HEAD WITHOUT COMPLETED DATE/TIME: 06/21/2018 6:14 pm REASON FOR STUDY: stroke s/s COMPARISON: None. TECHNIQUE: Axial images acquired through the brain without intravenous contrast. Images reviewed wi th bone, brain and subdural windows. Additional sagittal and coronal reconstructions were generated. Images stored on PACS. All CT scanners at this facility use dose modulation, iterative reconstruction, and/or weight based d osing when appropriate to reduce radiation dose to as low as reasonably achievable (ALARA). [facility]: Dose Right [facility]: CareDose [facility]: Dose Right [facility]: Teradose 4D [facility]: Smart TopCoder RADIATION DOSE: CT Rad equipment meets quality standard of care and radiation dose reduction techniq ues were employed. CTDIvol: 53.2 mGy. DLP: 1017 mGy-cm. mGy. LIMITATIONS: None. FINDINGS: VENTRICLES: Normal size and contour. CEREBRUM: No masses. No hemorrhage. No midline shift. No evidence for acute infarction. Normal gra y/white matter differentiation. No areas of low density in the white matter. CEREBELLUM: No masses. No hemorrhage. No alteration of density. No evidence for acute infarction. EXTRAAXIAL SPACES: No fluid collections. No masses. ORBITS AND GLOBE: No intra- or extraconal masses. Normal contour of globe without masses. CALVARIUM: No fracture. PARANASAL SINUSES: No fluid or mucosal thickening. SOFT TISSUES: No mass or hematoma. OTHER: No other significant finding. IMPRESSION: NORMAL BRAIN CT WITHOUT CONTRAST. EVIDENCE OF ACUTE STROKE: NO. COMMENT: Quality ID # [id number]: Final reports with documentation of one or more dose reduction techniques (e.g., Automated exposure control, adjustment of the mA and/or kV according to patient size, use of iterative reconstruction technique) TECHNICAL DOCUMENTATION: JOB ID: [id number] [employer]- All Rights Reserved Reading location - IP/workstation name: [email or web address]
[2018-06-21 18:41] LABS: INTERNATIONAL RATION (INR) 0.87; PROTHROMBIN TIME 12.3 SEC (11.4-15.4)
[2018-06-21 18:44] LABS: ABSOLUTE BASOPHILS # (AUTO) 0.1 10^3/uL (0.0-0.2); ABSOLUTE EOSINOPHILS # (AUTO) 0.2 10^3/uL (0.0-0.6); ABSOLUTE LYMPHOCYTES (AUTO) 3.3 10^3/uL (0.5-4.7); ABSOLUTE NEUT (AUTO) 10.7 10^3/uL (1.7-8.2); BASOPHILS % (AUTO) 0.9 % (0-2); HEMATOCRIT 47.5 % (36.0-47.0); HEMOGLOBIN 16.1 g/dL (12.0-15.5); LYMPHOCYTES % (AUTO) 21.8 % (13-45); MEAN CORPUSCULAR HEMOGLOBIN 28.5 pg (27.0-33.4); MEAN CORPUSCULAR VOLUME 84 fl (80-97); MONOCYTES % (AUTO) 6.4 % (3-13); PLATELET COUNT 266 10^3/uL (150-450); RED BLOOD COUNT 5.67 10^6/uL (3.72-5.28); SEGMENTED NEUTROPHILS % (AUTO) 69.9 % (42-78); TOTAL CELLS COUNTED % (AUTO) 100 %; WHITE BLOOD COUNT 15.3 10^3/uL (4.0-10.5)
[2018-06-21 18:52] LABS: ALANINE AMINOTRANSFERASE 18 U/L (9-52); ALBUMIN 3.9 g/dL (3.5-5.0); ALKALINE PHOSPHATASE 83 U/L (38-126); ANION GAP 11 (5-19); ASPARTATE AMINO TRANSFERASE 18 U/L (14-36); BILIRUBIN,DIRECT 0.4 mg/dL (0.0-0.4); BILIRUBIN,TOTAL 0.4 mg/dL (0.2-1.3); BLOOD UREA NITROGEN 15 mg/dL (7-20); CALCIUM 9.5 mg/dL (8.4-10.2); CARBON DIOXIDE 29 mmol/L (22-30); CHLORIDE 97 mmol/L (98-107); CREATINE KINASE 29 U/L (30-135); GLUCOSE 258 mg/dL (75-110); POTASSIUM 4.5 mmol/L (3.6-5.0); SODIUM 137.2 mmol/L (137-145); TOTAL PROTEIN 7.5 g/dL (6.3-8.2)
[2018-06-21 19:07] LABS: CREATINE KINASE MB < 0.22 ng/mL (<4.55); TROPONIN I < 0.012 ng/mL
--- NOTE | 2018-06-21 19:26 | ER Document Report ---
ED General - General Chief Complaint: S/S of Possible Stroke Stated Complaint: POSSIBLE STROKE Time Seen by Provider: 06/21/18 18:36 Primary Care Provider: IVÁN ZAMORANO MD [Primary Care Provider] - 06/23/18 Cannot obtain history due to: Uncooperative - Extremely challenging historian Notes: Patient is a 43-year-old female with past medical history of morbid obesity, hypertension, obstructive sleep apnea, COPD with oxygen dependence although is noncompliant with home oxygen therapy who presents stating that she is very dizzy, feels that she cannot stand or walk. Patient states that her symptoms started at 9 AM this morning after waking up. She states that she laid back down because she was feeling unsteady on her feet and very dizzy. She states that when she woke up at noon she felt like she can hardly walk due to dizziness. States that the symptoms came and went but she decided to call 911 just prior to arrival because she could not stand up anymore. By history she d enies any focal weakness, numbness, only notes lightheadedness and/or dizziness. No headache, neck pain. Nothing seemed to improve or worsen her symptoms. Has not had similar symptoms in the past. Has not seen her primary doctor. History is otherwise limited secondary to the patient being a very difficult and poor historian. TRAVEL OUTSIDE OF THE [place] IN LAST 30 DAYS: No - Related Data Allergies/Adverse Reactions: aspirin Allergy (Verified 01/17/18 17:26) morphine Allergy (Verified 01/17/18 19:11) Penicillins Allergy (Verified 01/17/18 17:26) Past Medical History - General Information source: Patient - Social History Smoking Status: Current Every Day Smoker Frequency of alcohol use: None Drug Abuse: None Lives with: Family Family History: Reviewed & Not Pertinent Patient has suicidal ideation: No Patient has homicidal ideation: No - Past Medical History Cardiac Medical History: Reports: Hx Hypertension Endocrine Medical History: Reports: Hx Diabetes Mellitus Type 1, Hx Diabetes Mellitus Type 2 Renal/ Medical History: Denies: Hx Peritoneal Dialysis Malignancy Medical History: Reports: Hx Lung Cancer Past Surgical History: Reports: Hx Section - Immunizations Immunizations up to date: Yes Hx Diphtheria, Pertussis, Tetanus Vaccination: Yes Review of Systems - Review of Systems Notes: Constitutional: Negative for fever. HENT: Negative for sore throat. Eyes: Negative for visual changes. Cardiovascular: Negative for chest pain. Respiratory: Negative for shortness of breath. Gastrointestinal: Negative for abdominal pain, vomiting or diarrhea. Genitourinary: Negative for dysuria. Musculoskeletal: Negative for back pain. Skin: Negative for rash. Neurological: Positive for dizziness, right lower extremity weakness 10 point ROS negative except as marked above and in HPI. Physical Exam - Vital signs Vitals: Resp BP Pulse Ox 15 160/95 H 95 06/21/18 18:18 06/21/18 18:18 06/21/18 18:18 Interpretation: Hypertensive Notes: PHYSICAL EXAMINATION: GENERAL: Obese, somewhat disheveled female in no obvious distress. Loquacious. HEAD: Atraumatic, normocephalic. EYES: Pupils equal round and reactive to light, extraocular movements intact, sclera anicteric, conjunctiva are normal. ENT: nares patent, oropharynx clear without exudates. Mildly dry mucous membranes. NECK: Normal range of motion, supple without lymphadenopathy LUNGS: Breath sounds clear to auscultation bilaterally and equal. No wheezes rales or rhonchi. HEART: Regular rate and rhythm without murmurs ABDOMEN: Soft, morbidly obese abdomen, nontender, normoactive bowel sounds. No guarding, no rebound. No masses appreciated. EXTREMITIES: No long bone deformities, no pitting or edema. No cyanosis. NEUROLOGICAL: She has no response to noxious stimuli on the dorsum or plantar surface of the foot on the right. The remainder of her neurologic exam however is otherwise completely unremarkable. 5 out of 5 biceps and triceps strength bilaterally. No facial droop. No dysdiadochokinesia, no dysmetria, heel to stoddard on left normal, unable to complete on right on my initial assessment secondary to distal right lower extremely weakness. She has no nystagmus. Pupils equal and reactive. Tongue protrudes midline. No facial asymmetry. When I did bend the patient's knee for her on the right and asked her to push directly against my hand toward her chest she was able to do so with complete strength PSYCH: Anxious, very talkative, rambling history SKIN: Warm, Dry, normal turgor, no rashes or lesions noted. Course - Re-evaluation Re-evalutation: 06/21/18 19:27 Documentation is delayed I did take over 20 minutes on initial examination of this patient who is having varying neurologic findings that are not consistent with an acute stroke. The patient presented initially stating that she was very "" dizzy", lightheaded and was having difficulty walking secondary to this. Symptoms have been intermittent although she states much more severe in the last several hours. Apparently the patient on initial assessment from the previous provider stated that she could not use her right upper extremity nor her right lower extremity and was trying to force a right facial droop. At the time of my exam she is stating only that she cannot move her distal right lower extremity below the level of the knee that she cannot feel her foot. She has no response to noxious stimuli on the dorsum or plantar surface of the foot on the right. The remainder of her neurologic exam however is otherwise completely unremarkable. 5 out of 5 biceps and triceps strength bilaterally. No facial droop. No dysdiadochokinesia, no dysmetria, heel to stoddard on left normal, unable to complete on right on my initial assessment secondary to distal right lower extremely weakness. She has no nystagmus. Pupils equal and reactive. Tongue protrudes midline. No facial asymmetry. When I did bend the patient's knee for her on the right and asked her to push directly against my hand toward her chest she was able to do so with complete strength which would be extraordinarily unusual for a central stroke causing her symptoms that she has 5 out of 5 strength in the proximal region. However given the variability of the patient's symptoms which are strongly suggestive of a non-anatomic cause I did recommend an MRI. The patient then states she cannot get this because she has a plate in her neck. Within 1-2 minutes thereafter the patient began moving her right lower extremity normally in its entirety. I do believe there is a significant component of either a conversion reaction or volitional behavior here given the variability of her exam from the initial provider to me as well as the resolution of her symptoms after being told that she would require an MRI to definitively exclude a stroke. However patient does have plates in her neck which she states is a certainty I cannot actually get an MRI to definitively exclude a stroke. The CT of her head is normal although this is not definitively exclude an ischemic event. Labs show hyperglycemia, otherwise unremarkable. Will continue to monitor closely. 06/21/18 20:44 I have reassessed the patient on 2 repeated occasions since initial assessment. On both occasions she now has a completely normal neurologic exam, NIH stroke scale is 0. I do not believe the patient had a TIA for several reasons first the duration of her symptoms and the variance of her symptoms would be inconsistent with this diagnosis. As discussed above likewise, her neurologic pattern of symptoms was also inconsistent with central event. Patient could have had a conversion reaction versus some symptoms related to blood sugars being poorly regulated at home. Patient is also apparently specific on supplemental oxygen at home and was not using it which could have also contributed to her symptoms. At this point on multiple repeat neurologic exams she is completely normal without any deficits. I have advised that she needs to follow-up very closely with her primary care doctor. Patient is likewise agreeable to this plan, states she does not wish to remain in the hospital. At this time will discharge with return precautions and follow-up recommendations. Verbal discharge instructions given a the bedside and opportunity for questions given. Medication warnings reviewed. Patient is in agreement with this plan and has verbalized understanding of return precautions and the need for primary care follow-up in the next 24-72 hours. 06/22/18 05:41 - Vital Signs Vital signs: Temp Pulse Resp BP Pulse Ox 98.7 F 92 19 137/80 H 91 L 06/21/18 21:29 06/21/18 21:00 06/21/18 21:01 06/21/18 21:01 06/21/18 21:01 - Laboratory Result Diagrams: 06/21/18 18:25 06/21/18 18:25 Laboratory results interpreted by me: 06/21/18 06/21/18 06/21/18 18:25 18:25 18:32 WBC 15.3 H RBC 5.67 H Hgb 16.1 H Hct 47.5 H Absolute Neutrophils 10.7 H Chloride 97 L Glucose 258 H POC Glucose 237 H Creatine Kinase 29 L - Diagnostic Test Radiology reviewed: Image reviewed, Reports reviewed Radiology results interpreted by me: 06/21/18 20:47 CT head: No acute intracranial bleed or mass Chest x-ray: No acute infiltrate or pneumothorax - EKG Interpretation by Me Additional EKG results interpreted by me: 06/21/18 20:48 Sinus rhythm, rate 98. No ST elevations or depressions. QTC is 445. Critical Care Note - Critical Care Note Total time excluding time spent on procedures (mins): 36 Comments: Critical care time spent obtaining history from patient or surrogate, deve lopment of treatment plan with patient or surrogate, evaluation of patient's response to treatment, examination of patient, ordering and performing treatments and interventions, ordering and review of laboratory studies, re- evaluation of patient's condition, ordering and review of radiographic studies and review of old charts Discharge - Discharge Clinical Impression: Diabetes mellitus type 2 in obese, Morbid obesity with BMI of 45.0-49.9, adult, Dizziness HTN (hypertension) Qualifiers: Hypertension type: unspecified Qualified Code(s): I10 - Essential (primary) hypertension Condition: Stable Disposition: HOME, SELF-CARE Additional Instructions: Please follow-up with your primary care doctor on Saturday regarding today's emergency department visit. Please return immediately he had recurrence of your symptoms, pass out, develop severe headache, weakness, numbness or confusion. Take all medications as prescribed. Referrals: IVÁN ZAMORANO MD [Primary Care Provider] - 06/23/18
[2018-06-21 21:29] VITALS: BP 137/80
--- NOTE | 2018-06-22 23:45 | EKG REPORT ---
SEVERITY:- NORMAL ECG - SINUS RHYTHM : Confirmed by: Nahun Sousa 22-Jun-2018 23:44:19
== END 2018-06-21 21:30 | disposition home or self-care (01) ==
LOC: ER 18:03
DX: R42 Dizziness and giddiness (principal); R26.81 Unsteadiness on feet; R53.1 Weakness; I10 Essential (primary) hypertension; E11.9 Type 2 diabetes mellitus without complications; E66.01 Morbid (severe) obesity due to excess calories; Z68.42 Body mass index [BMI] 45.0-49.9, adult; J44.9 Chronic obstructive pulmonary disease, unspecified; Z91.19 Patient's noncompliance with other medical treatment and regimen; Z88.6 Allergy status to analgesic agent; Z88.5 Allergy status to narcotic agent; Z88.0 Allergy status to penicillin; F17.200 Nicotine dependence, unspecified, uncomplicated; Z85.118 Personal history of other malignant neoplasm of bronchus and lung
CPT/HCPCS: 36415; 70450; 71045; 80053; 82550; 82553; 82962; 84484; 85025; 85610; 85730; 93005; 93010; 99285

== ENCOUNTER 2018-07-01 13:39 | Observation (INO) | payer MEDICAID ==
[2018-07-01] MEDS ORDERED: ASPIRIN/DIPYRIDAMOLE 25-200 MG 1 CAP.SR CPMP.12HR PO SCH (16:30)
[2018-07-01 16:42] LABS: ABSOLUTE BASOPHILS # (AUTO) 0.1 10^3/uL (0.0-0.2); ABSOLUTE EOSINOPHILS # (AUTO) 0.2 10^3/uL (0.0-0.6); ABSOLUTE LYMPHOCYTES (AUTO) 3.8 10^3/uL (0.5-4.7); ABSOLUTE MONOCYTES (AUTO) 0.8 10^3/uL (0.1-1.4); ABSOLUTE NEUT (AUTO) 7.3 10^3/uL (1.7-8.2); BASOPHILS % (AUTO) 0.7 % (0-2); EOSINOPHILS % (AUTO) 1.7 % (0-6); HEMATOCRIT 41.5 % (36.0-47.0); HEMOGLOBIN 14.1 g/dL (12.0-15.5); MEAN CORPUSCULAR HEMOGLOBIN 28.4 pg (27.0-33.4); MEAN CORPUSCULAR HGB CONC 33.9 g/dL (32.0-36.0); MEAN CORPUSCULAR VOLUME 84 fl (80-97); MONOCYTES % (AUTO) 6.8 % (3-13); PLATELET COUNT 258 10^3/uL (150-450); RED BLOOD COUNT 4.95 10^6/uL (3.72-5.28); RED CELL DISTRIBUTION WIDTH 13.8 % (11.5-14.0); SEGMENTED NEUTROPHILS % (AUTO) 59.8 % (42-78); TOTAL CELLS COUNTED % (AUTO) 100 %; WHITE BLOOD COUNT 12.2 10^3/uL (4.0-10.5)
[2018-07-01 17:01] LABS: ALANINE AMINOTRANSFERASE 19 U/L (9-52); ALBUMIN 3.5 g/dL (3.5-5.0); ALKALINE PHOSPHATASE 63 U/L (38-126); ANION GAP 7 (5-19); ASPARTATE AMINO TRANSFERASE 14 U/L (14-36); BILIRUBIN,DIRECT 0.2 mg/dL (0.0-0.4); BILIRUBIN,TOTAL 0.3 mg/dL (0.2-1.3); BLOOD UREA NITROGEN 14 mg/dL (7-20); CALCIUM 9.5 mg/dL (8.4-10.2); CARBON DIOXIDE 28 mmol/L (22-30); CHLORIDE 103 mmol/L (98-107); CREATINE KINASE 37 U/L (30-135); GLUCOSE 181 mg/dL (75-110); POTASSIUM 4.6 mmol/L (3.6-5.0); SODIUM 137.7 mmol/L (137-145); TOTAL PROTEIN 6.5 g/dL (6.3-8.2)
[2018-07-01 17:16] LABS: CREATINE KINASE MB < 0.22 ng/mL (<4.55); TROPONIN I < 0.012 ng/mL
--- NOTE | 2018-07-01 17:28 | EKG REPORT ---
SEVERITY:- NORMAL ECG - SINUS RHYTHM : Confirmed by: Vern Mcdonald MD 01-Jul-2018 17:28:01
--- NOTE | 2018-07-01 18:42 | RADIOLOGY REPORT (SQ) ---
EXAM DESCRIPTION: MRI HEAD WITHOUT COMPLETED DATE/TIME: 07/01/2018 5:58 pm REASON FOR STUDY: cerebral infarction with right side weakness COMPARISON: CT brain 06/21/2018 TECHNIQUE: Multiplanar imaging includes non-contrasted T1, T2, FLAIR, and diffusion with ADC map seq uences. Images stored on PACS. LIMITATIONS: None. FINDINGS: ANATOMY: No anomalies. Normal vascular flow voids. Pituitary fossa normal. CSF SPACES: Normal in size and contour. No hemorrhage. CEREBRUM: Sulci and gyri normal in size and contour. Normal white matter signal on FLAIR imaging. No evidence of hemorrhage, mass, or extraaxial fluid collection. POSTERIOR FOSSA: No signal alteration. No hemorrhage. No edema, masses or mass effect. Internal shawanda tory canals, cerebello-pontine angles, mastoids normal. DIFFUSION IMAGING: Negative for acute or sub-acute infarction. ORBITS: No masses. Globes normal. PARANASAL SINUSES: No fluid levels. Mucosa normal. OTHER: No other significant finding. IMPRESSION: NORMAL MRI OF THE BRAIN WITHOUT INTRAVENOUS GADOLINIUM CONTRAST. EVIDENCE OF ACUTE STROKE: NO. TECHNICAL DOCUMENTATION: JOB ID: [id number] [employer]- All Rights Reserved Reading location - IP/workstation name: [email or web address]
--- NOTE | 2018-07-01 20:47 | PDOC H&P ---
History of Present Illness Admission Date/PCP: 07/01/18 13:39 IVÁN ZAMORANO MD History of Present Illness: LORRIE GUERRERO is a 43 year old female, She came to the office this [facility] for evaluation of stroke symptoms she stated that she has numbness and weakness of the right side of her body, in the office she has a facial droop, the fascia musculature is more consistent with Patel's palsy but the symptoms she described especially right-sided hemisensory loss is more consistent with acute stroke. She also stated that her symptoms started about 10 days ago in fact she was evaluated in the emergency room on 06/21/2018,In the emergency room CT head was done that was on 06/21/2018, this was negative for acute stroke. She was admitted directly from the office to the hospital, a stat MRI of the brain was done, it was normal. Past Medical History Cardiac Medical History: Reports: Hypertension Endocrine Medical History: Reports: Diabetes Mellitus Type 2, Obesity Past Surgical History Past Surgical History: Reports: Section Social History Smoking Status: Former Smoker Cigarettes Packs Per Day: 1 Frequency of Alcohol Use: None Hx Recreational Drug Use: No Drugs: None Hx Prescription Drug Abuse: No Family History Family History: Reviewed & Not Pertinent Parental Family History Reviewed: Yes Children Family History Reviewed: Yes Sibling(s) Family History Reviewed.: Yes Medication/Allergy Home Medications: Albuterol Sulfate [Proair HFA Inhalation Aerosol 8.5 gm MDI] 1 puff IH Q4HP PRN 07/01/18 Hum Insulin NPH/Reg Insulin Hm [Novolin 70-30 100 Unit/ml Vial] 32 unit SQ QPM 07/01/18 Hum Insulin NPH/Reg Insulin Hm [Novolin 70-30 100 Unit/ml Vial] 34 unit SQ QAM 07/01/18 Lisinopril [Prinivil 5 mg Tablet] 5 mg PO DAILY 07/01/18 Dapagliflozin Propanediol [Farxiga] 10 mg PO DAILY #90 tablet 07/02/18 Allergies/Adverse Reactions: aspirin Allergy (Severe, Verified 07/01/18 18:45) morphine Allergy (Verified 01/17/18 19:11) Penicillins Allergy (Verified 07/01/18 18:45) Review of Systems Constitutional: ABSENT: chills, fever(s), headache(s), weight gain, weight loss Eyes: ABSENT: visual disturbances Ears: ABSENT: hearing changes Cardiovascular: ABSENT: chest pain, dyspnea on exertion, edema, orthropnea, palpitations Respiratory: ABSENT: cough, hemoptysis Gastrointestinal: ABSENT: abdominal pain, constipation, diarrhea, hematemesis, hematochezia, nausea, vomiting Genitourinary: ABSENT: dysuria, hematuria Musculoskeletal: ABSENT: joint swelling Integumentary: ABSENT: rash, wounds Neurological: PRESENT: numbness Psychiatric: ABSENT: anxiety, depression, homidical ideation, suicidal ideation Endocrine: ABSENT: cold intolerance, heat intolerance, menstrual abnormalities, polydipsia, polyuria Hematologic/Lymphatic: ABSENT: easy bleeding, easy bruising, lymphadenopathy Physical Exam Vital Signs: Temp Pulse Resp BP Pulse Ox 98.7 F 82 21 H 145/76 H 97 07/01/18 19:21 07/01/18 19:21 07/01/18 19:21 07/01/18 19:21 07/01/18 19:21 Intake & Output 06/30/18 07/01/18 07/02/18 06:59 06:59 06:59 Weight 146.8 kg General appearance: PRESENT: no acute distress, morbidly obese, well-developed, well-nourished Head exam: PRESENT: atraumatic, normocephalic Eye exam: PRESENT: conjunctiva pink, EOMI, PERRLA Ear exam: PRESENT: normal external ear exam Mouth exam: PRESENT: moist, tongue midline Neck exam: PRESENT: full ROM Respiratory exam: PRESENT: clear to auscultation neo Cardiovascular exam: PRESENT: RRR, +S1, +S2 Pulses: PRESENT: normal dorsalis pedis pul, +2 pedal pulses bilateral Vascular exam: PRESENT: normal capillary refill GI/Abdominal exam: PRESENT: normal bowel sounds, soft Rectal exam: PRESENT: deferred Neurological exam: PRESENT: alert, other - She has facial muscle weakness with facial drooping Psychiatric exam: PRESENT: appropriate affect, normal mood Skin exam: PRESENT: dry, intact, warm Results Laboratory Results: 07/01/18 16:20 07/01/18 16:20 07/01/18 07/01/18 16:20 16:20 WBC 12.2 H RBC 4.95 Hgb 14.1 Hct 41.5 MCV 84 MCH 28.4 MCHC 33.9 RDW 13.8 Plt Count 258 Seg Neutrophils % 59.8 Lymphocytes % 31.0 Monocytes % 6.8 Eosinophils % 1.7 Basophils % 0.7 Absolute Neutrophils 7.3 Absolute Lymphocytes 3.8 Absolute Monocytes 0.8 Absolute Eosinophils 0.2 Absolute Basophils 0.1 Sodium 137.7 Potassium 4.6 Chloride 103 Carbon Dioxide 28 Anion Gap 7 BUN 14 Creatinine 0.47 L Est GFR ( Amer) > 60 Est GFR (Non-Af Amer) > 60 Glucose 181 H Calcium 9.5 Total Bilirubin 0.3 AST 14 ALT 19 Alkaline Phosphatase 63 Total Protein 6.5 Albumin 3.5 07/01/18 07/01/18 16:20 16:20 Creatine Kinase 37 CK-MB (CK-2) < 0.22 Troponin I < 0.012 Impressions: Head MRI 07/01/18 00:00 IMPRESSION: NORMAL MRI OF THE BRAIN WITHOUT INTRAVENOUS GADOLINIUM CONTRAST. EVIDENCE OF ACUTE STROKE: NO. Assessment & Plan - Diagnosis (1) Patel palsy Is this a current diagnosis for this admission?: Yes Plan: She has facial nerve palsy, there is no focal motor deficits, most of the symptoms involve the facial musculature, the right hemisensory loss suggestive CVA, MRI brain was normal, there is no loss of motor function (2) Diabetes mellitus type 2 in obese Is this a current diagnosis for this admission?: Yes (3) Morbid obesity with BMI of 45.0-49.9, adult Is this a current diagnosis for this admission?: Yes (4) KERWIN (obstructive sleep apnea) Is this a current diagnosis for this admission?: Yes
[2018-07-01] MEDS ORDERED: DEXTROSE 40% GEL 15 GM TUBE PO PRN ×2 (20:54)
[2018-07-01] MEDS ORDERED: GLUCAGON,HUMAN RECOMB 1 MG INJ IM PRN (20:54)
[2018-07-01] MEDS ORDERED: DEXTROSE 50%-WATER 25 GM/50 ML DISP.SYRIN IV PRN ×2 (20:54)
[2018-07-01 22:19] LABS: PROTHROMBIN TIME 12.6 SEC (11.4-15.4)
[2018-07-01 22:20] LABS: PARTIAL THROMBOPLASTIN TIME 25.7 SEC (23.5-35.8)
[2018-07-01] MEDS ORDERED: ALBUTEROL SULFATE HFA (90 MCG/PUFF) 200 PUFF/8.5 GM MDI IH PRN ×2 (22:59→23:30)
[2018-07-01] MEDS: ENOXAPARIN SODIUM INJ 30 MG/0.3 ML DISP.SYRIN SUBCUT SCH (23:19)
[2018-07-01] MEDS: CLOPIDOGREL BISULFATE 75 MG TABLET PO SCH (23:19)
[2018-07-01] MEDS: INSULIN LISPRO 100 UNIT/ML 3 ML VIAL SUBCUT SCH (23:20)
[2018-07-02 00:14] LABS: ARTERIAL BLOOD BASE EXCESS 2.8 mmol/L; ARTERIAL BLOOD H2CO3 1.49 mmol/L (1.05-1.35); ARTERIAL BLOOD HCO3 28.8 mmol/L (20-24); ARTERIAL BLOOD O2 SATURATION 92.1 % (94-98); ARTERIAL BLOOD PCO2 49.6 mmHg (35-45); ARTERIAL BLOOD PH 7.38 (7.35-7.45); ARTERIAL BLOOD PO2 64.5 mmHg (80-100); ARTERIAL BLOOD TOTAL CO2 30.3 mmol/L (21-25)
[2018-07-02 00:16] LABS: ARTERIAL BLOOD FIO2 ROOM AIR
[2018-07-02 00:37] LABS: APPEARANCE,URINE CLEAR; BILIRUBIN,URINE NEGATIVE (NEGATIVE); COLOR,URINE YELLOW; GLUCOSE, URINE NEGATIVE (NEGATIVE); KETONES,URINE NEGATIVE (NEGATIVE); LEUKOCYTE ESTERASE,URINE NEGATIVE (NEGATIVE); NITRITE,URINE NEGATIVE (NEGATIVE); PROTEIN,URINE NEGATIVE (NEGATIVE); URINE SPECIFIC GRAVITY 1.019; UROBILINOGEN,URINE NEGATIVE mg/dL (<2.0)
[2018-07-02 01:36] LABS: CREATINE KINASE MB < 0.22 ng/mL (<4.55); TROPONIN I < 0.012 ng/mL
[2018-07-02] MEDS ORDERED: ALBUTEROL SULFATE HFA (90 MCG/PUFF) 200 PUFF/8.5 GM MDI IH PRN (07:07)
--- NOTE | 2018-07-02 07:55 | EKG REPORT ---
SEVERITY:- NORMAL ECG - SINUS RHYTHM : Confirmed by: Vern Mcdonald MD 02-Jul-2018 07:54:44
[2018-07-02 08:32] LABS: ALANINE AMINOTRANSFERASE 30 U/L (9-52); ALBUMIN 3.3 g/dL (3.5-5.0); ALKALINE PHOSPHATASE 62 U/L (38-126); ANION GAP 5 (5-19); ASPARTATE AMINO TRANSFERASE 20 U/L (14-36); BILIRUBIN,DIRECT 0.2 mg/dL (0.0-0.4); BILIRUBIN,TOTAL 0.5 mg/dL (0.2-1.3); BLOOD UREA NITROGEN 10 mg/dL (7-20); CALCIUM 8.7 mg/dL (8.4-10.2); CARBON DIOXIDE 30 mmol/L (22-30); CHLORIDE 102 mmol/L (98-107); CHOLESTEROL 160.56 mg/dL (0-200); CREATINE KINASE 33 U/L (30-135); GLUCOSE 174 mg/dL (75-110); HEMATOCRIT 41.4 % (36.0-47.0); HEMOGLOBIN 13.9 g/dL (12.0-15.5); MEAN CORPUSCULAR HEMOGLOBIN 28.2 pg (27.0-33.4); MEAN CORPUSCULAR HGB CONC 33.7 g/dL (32.0-36.0); MEAN CORPUSCULAR VOLUME 84 fl (80-97); PLATELET COUNT 232 10^3/uL (150-450); POTASSIUM 4.5 mmol/L (3.6-5.0); RED BLOOD COUNT 4.93 10^6/uL (3.72-5.28); RED CELL DISTRIBUTION WIDTH 13.7 % (11.5-14.0); SODIUM 137.1 mmol/L (137-145); TOTAL PROTEIN 6.3 g/dL (6.3-8.2); TRIGLYCERIDES 208 mg/dL (<150); WHITE BLOOD COUNT 9.8 10^3/uL (4.0-10.5)
[2018-07-02] MEDS: ACETAMINOPHEN 325 MG TABLET PO SCH ×2 (08:32→12:22)
[2018-07-02] MEDS: INSULIN LISPRO 100 UNIT/ML 3 ML VIAL SUBCUT SCH ×2 (08:33→12:11)
[2018-07-02 08:48] LABS: ABSOLUTE LYMPHOCYTES# (MANUAL) 3.6 10^3/uL (0.5-4.7); ABSOLUTE MONOCYTES # (MANUAL) 0.2 10^3/uL (0.1-1.4); ABSOLUTE NEUTROPHILS# (MANUAL) 5.8 10^3/uL (1.7-8.2); BASOPHILS % (MANUAL) 1 % (0-2); EOSINOPHILS % (MANUAL) 1 % (0-6); LYMPHOCYTES % (MANUAL) 33 % (13-45); METAMYELOCYTES % (MANUAL) 1 % (0); MONOCYTES % (MANUAL) 2 % (3-13); SEGMENTED NEUTROPHILS % (MAN) 58 % (42-78); TOTAL CELLS COUNTED 100
[2018-07-02 08:49] LABS: DIRECT LDL 103 mg/dL (<100); PLATELET CLUMPS PRESENT; PLATELET COMMENT ADEQUATE; STOMATOCYTES 1+
[2018-07-02 08:53] LABS: CREATINE KINASE MB < 0.22 ng/mL (<4.55); TROPONIN I < 0.012 ng/mL; VLDL CHOLESTEROL 41.6 mg/dL (10-31)
[2018-07-02] MEDS ORDERED: LISINOPRIL 5 MG TABLET PO SCH (10:00)
[2018-07-02] MEDS: CLOPIDOGREL BISULFATE 75 MG TABLET PO SCH (10:17)
[2018-07-02] MEDS: ENOXAPARIN SODIUM INJ 30 MG/0.3 ML DISP.SYRIN SUBCUT SCH (10:17)
--- NOTE | 2018-07-02 15:47 | PDOC DISCHARGE SUMMARY ---
General - Admit/Disc Date/PCP Admission Date/Primary Care Provider: 07/01/18 13:39 IVÁN ZAMORANO MD Discharge Date: 07/02/18 - Discharge Diagnosis (1) Patel palsy Is this a current diagnosis for this admission?: Yes (2) Diabetes mellitus type 2 in obese Is this a current diagnosis for this admission?: Yes (3) Morbid obesity with BMI of 45.0-49.9, adult Is this a current diagnosis for this admission?: Yes (4) KERWIN (obstructive sleep apnea) Is this a current diagnosis for this admission?: Yes - Additional Information Prescriptions: Dapagliflozin Propanediol [Farxiga] 10 mg PO DAILY #90 tablet Home Medications: Albuterol Sulfate [Proair HFA Inhalation Aerosol 8.5 gm MDI] 1 puff IH Q4HP PRN 07/01/18 Hum Insulin NPH/Reg Insulin Hm [Novolin 70-30 100 Unit/ml Vial] 32 unit SQ QPM 07/01/18 Hum Insulin NPH/Reg Insulin Hm [Novolin 70-30 100 Unit/ml Vial] 34 unit SQ QAM 07/01/18 Lisinopril [Prinivil 5 mg Tablet] 5 mg PO DAILY 07/01/18 Dapagliflozin Propanediol [Farxiga] 10 mg PO DAILY #90 tablet 07/02/18 History of Present Illness History of Present Illness: LORRIE GUERRERO is a 43 year old female, She came to the office this afternoon for evaluation of stroke symptoms she stated that she has numbness and weakness of the right side of her body, in the office she has a facial droop, the fascia musculature is more consistent with Patel's palsy but the symptoms she described especially right-sided hemisensory loss is more consistent with acute stroke. She also stated that her symptoms started about 10 days ago in fact she was evaluated in the emergency room on 06/21/2018,In the emergency room CT head was done that was on 06/21/2018, this was negative for acute stroke. She was admitted directly from the office to the hospital, a stat MRI of the brain was done, it was normal. Hospital Course Hospital Course: She was admitted because of concern for CVA due to the presentation is more consistent with facial nerve palsy, because she complained of right hemisensory loss, CVA was suspected as a potential etiology of this symptom. MRI brain was negative for any acute CVA, she was observed for 24 hours, there was no loss of motor function of the extremities, she has normal sensation on objective eval uation. She has risk factor for CVA, poorly controlled diabetes, she is obese, she does not follow recommended diet and also exercise Physical Exam Vital Signs: Temp Pulse Resp BP Pulse Ox 97.9 F 73 16 137/83 H 91 L 07/02/18 11:20 07/02/18 14:00 07/02/18 12:00 07/02/18 12:00 07/02/18 12:00 Intake & Output 07/01/18 07/02/18 07/03/18 06:59 06:59 06:59 Intake Total 995 Output Total 2 Balance 993 Weight 146.8 kg General appearance: PRESENT: no acute distress, morbidly obese, well-developed, well-nourished Head exam: PRESENT: atraumatic, normocephalic Eye exam: PRESENT: conjunctiva pink, EOMI, PERRLA Ear exam: PRESENT: normal external ear exam Mouth exam: PRESENT: moist, tongue midline Neck exam: PRESENT: full ROM Respiratory exam: PRESENT: clear to auscultation neo Cardiovascular exam: PRESENT: RRR, +S1, +S2 Pulses: PRESENT: normal dorsalis pedis pul, +2 pedal pulses bilateral Vascular exam: PRESENT: normal capillary refill GI/Abdominal exam: PRESENT: normal bowel sounds, soft Rectal exam: PRESENT: deferred Neurological exam: PRESENT: alert, other - Fascia muscle weakness Psychiatric exam: PRESENT: appropriate affect, normal mood Skin exam: PRESENT: dry, intact, warm Results Laboratory Results: 07/02/18 08:00 07/02/18 08:00 07/01/18 07/01/18 07/01/18 16:20 16:20 23:40 WBC 12.2 H RBC 4.95 Hgb 14.1 Hct 41.5 MCV 84 MCH 28.4 MCHC 33.9 RDW 13.8 Plt Count 258 Seg Neutrophils % 59.8 Lymphocytes % 31.0 Monocytes % 6.8 Eosinophils % 1.7 Basophils % 0.7 Absolute Neutrophils 7.3 Absolute Lymphocytes 3.8 Absolute Monocytes 0.8 Absolute Eosinophils 0.2 Absolute Basophils 0.1 Carbonic Acid 1.49 H HCO3/H2CO3 Ratio 19:1 ABG pH 7.38 ABG pCO2 49.6 H ABG pO2 64.5 L ABG HCO3 28.8 H ABG O2 Saturation 92.1 L ABG Base Excess 2.8 FiO2 ROOM AIR Sodium 137.7 Potassium 4.6 Chloride 103 Carbon Dioxide 28 Anion Gap 7 BUN 14 Creatinine 0.47 L Est GFR ( Amer) > 60 Est GFR (Non-Af Amer) > 60 Glucose 181 H Calcium 9.5 Total Bilirubin 0.3 AST 14 ALT 19 Alkaline Phosphatase 63 Total Protein 6.5 Albumin 3.5 Triglycerides Cholesterol LDL Cholesterol Direct VLDL Cholesterol HDL Cholesterol Urine Color Urine Appearance Urine pH Ur Specific Nedrow Urine Protein Urine Glucose (UA) Urine Ketones Urine Blood Urine Nitrite Ur Leukocyte Esterase Urine WBC (Auto) Urine RBC (Auto) 07/01/18 07/02/18 07/02/18 23:40 08:00 08:00 WBC 9.8 RBC 4.93 Hgb 13.9 Hct 41.4 MCV 84 MCH 28.2 MCHC 33.7 RDW 13.7 Plt Count 232 Seg Neutrophils % Not Reportable Lymphocytes % Not Reportable Monocytes % Not Reportable Eosinophils % Not Reportable Basophils % Not Reportable Absolute Neutrophils Not Reportable Absolute Lymphocytes Not Reportable Absolute Monocytes Not Reportable Absolute Eosinophils Not Reportable Absolute Basophils Not Reportable Carbonic Acid HCO3/H2CO3 Ratio ABG pH ABG pCO2 ABG pO2 ABG HCO3 ABG O2 Saturation ABG Base Excess FiO2 Sodium 137.1 Potassium 4.5 Chloride 102 Carbon Dioxide 30 Anion Gap 5 BUN 10 Creatinine 0.50 L Est GFR ( Amer) > 60 Est GFR (Non-Af Amer) > 60 Glucose 174 H Calcium 8.7 Total Bilirubin 0.5 AST 20 ALT 30 Alkaline Phosphatase 62 Total Protein 6.3 Albumin 3.3 L Triglycerides 208 H Cholesterol 160.56 LDL Cholesterol Direct 103 H VLDL Cholesterol 41.6 H HDL Cholesterol 23 L Urine Color YELLOW Urine Appearance CLEAR Urine pH 5.0 Ur Specific Ned[place] 1.019 Urine Protein NEGATIVE Urine Glucose (UA) NEGATIVE Urine Ketones NEGATIVE Urine Blood NEGATIVE Urine Nitrite NEGATIVE Ur Leukocyte Esterase NEGATIVE Urine WBC (Auto) 1 Urine RBC (Auto) 1 07/01/18 07/01/18 07/02/18 16:20 16:20 00:15 Creatine Kinase 37 41 CK-MB (CK-2) < 0.22 Troponin I < 0.012 07/02/18 07/02/18 07/02/18 00:15 08:00 08:00 Creatine Kinase 33 CK-MB (CK-2) < 0.22 < 0.22 Troponin I < 0.012 < 0.012 Impressions: Head MRI 07/01/18 00:00 IMPRESSION: NORMAL MRI OF THE BRAIN WITHOUT INTRAVENOUS GADOLINIUM CONTRAST. EVIDENCE OF ACUTE STROKE: NO. Qualifiers - * PATIENT BEING DISCHARGED WITH ANY OF THE FOLLOWING DIAGNOSIS: No
[2018-07-02 16:22] VITALS: BP 130/59
--- NOTE | 2018-07-02 17:02 | RADIOLOGY REPORT (SQ) ---
EXAM DESCRIPTION: CAROTID DOPPLER COMPLETED DATE/TIME: 07/02/2018 4:10 pm REASON FOR STUDY: cva COMPARISON: MRI brain 07/01/2018 CT brain 06/21/2018 TECHNIQUE: Grayscale ultrasound, Doppler velocity and spectra, and color Doppler images acquired of the extra-cranial carotid and vertebral arteries. Images stored on PACS. LIMITATIONS: None. FINDINGS: RIGHT CAROTID CCA Velocities: Within normal limits. Right common carotid artery peak systolic velocity 1.3 m/sec ICA Velocities Peak systolic 1.0 m/s. End diastolic 0.23 m/s. Proximal ICA/CCA peak systolic ratio 1.0. Spectra normal. No significant plaque. LEFT CAROTID CCA Velocities: Within normal limits. Left common carotid artery peak systolic velocity 1.5 m/sec ICA Velocities Peak systolic 0.64 m/s. End diastolic 0.22 m/s. Proximal ICA/CCA peak systolic ratio 0.9. Spectra normal. No significant plaque. VERTEBRAL ARTERIES: Antegrade flow. Normal waveforms. SUBCLAVIAN ARTERIES: Not evaluated. OTHER: No other significant finding. IMPRESSION: NO HEMODYNAMICALLY SIGNIFICANT STENOSIS. COMMENT: Quality ID #[id number]: Velocity criteria are extrapolated from the diameter data as defined by t he Society of Radiologists in Ultrasound Consensus Conference. Radiology 2003: 229; 340-346. TECHNICAL DOCUMENTATION: JOB ID: [id number] [employer]- All Rights Reserved Reading location - IP/workstation name: [email or web address]
--- NOTE | 2018-07-02 22:04 | XCELERA REPORT ---
[address] [address] Transthoracic Echocardiogram Report Name: LORRIE GUERRERO Age: 43 yrs Gender: Female : 1975 Patient Status: Inpatient Patient Location: [address] [place], [place] [address] Study Date: 07/02/2018 01:47 PM Height: 68 in Weight: 323 lb BSA: 2.5 m2 Procedure: A two-dimensional transthoracic echocardiogram with color flow and Doppler was performed. Study Quality: Fair. Reason For Study: cerebral infarction right side weakness History: CVA. Ordering Physician: IVÁN ZAMORANO Performed By: Eileen Dunne Interpretation Summary There is no obvious cardiac source of embolus noted on this transthoracic echocardiogram. Follow-up with a REILLY is suggested if cardiac source is still suspected. The left ventricle is normal in size. There is normal left ventricular wall thickness. LV EF is > than 65% The left ventricular ejection fraction is within normal limits. Doppler measurements suggest normal left ventricular diastolic function The left ventricular wall motion is normal. There is no thrombus. There is no ventricular septal defect visualized. The right ventricle is normal in size and function. The right ventricle is not well visualized secondary to technical limitations The right atrium is normal. The left atrial size is normal. The interatrial septum is intact with no evidence for an atrial septal defect. There is no Doppler evidence for an interatrial shunt There is no evidence of mitral valve prolapse. There is no vegetation seen on the mitral valve. There is no mitral valve stenosis. There is no mitral regurgitation noted. There is no aortic valvular vegetation. There is no aortic valve stenosis There is no LVOT obstruction. No aortic regurgitation is present. There is no tricuspid stenosis. There is a trace to mild amount of tricuspid regurgitation Right ventricular systolic pressure is normal. RVSP is 23 to 28 mm of Hg , with RA mean of 5 to 10. There is no pulmonic valvular stenosis. There is no pulmonic valvular regurgitation. The aortic root is normal size. The inferior vena cava appeared normal and decreased > 50% with respiration (RAP 5-10 mmHg) There is no pericardial effusion. There is no obvious cardiac source of embolus noted on this transthoracic echocardiogram. Follow-up with a REILLY is suggested if cardiac source is still suspected MMode/2D Measurements & Calculations RVDd: 3.1 cm LVIDd: 5.2 cm FS: 39.0 % Ao root diam: 3.0 cm IVSd: 1.1 cm LVIDs: 3.2 cm EDV(Teich): Ao root area: LVPWd: 1.1 cm 128.4 ml 7.0 cm2 ESV(Teich): 39.7 mlLA dimension: 3.5 cm EF(Teich): 69.1 % LVLd ap4: 8.0 cm SV(MOD-sp4): EDV(MOD-sp4): 67.0 ml 96.0 ml LVLs ap4: 5.8 cm ESV(MOD-sp4): 29.0 ml EF(MOD-sp4): 69.8 % Doppler Measurements & Calculations MV E max sumanth: MV P1/2t max sumanth: Ao V2 max: LV V1 max P.7 cm/sec 96.7 cm/sec 149.7 cm/sec 5.9 mmHg MV A max sumanth: MV P1/2t: 74.1 msec Ao max P.0 mmHg LV V1 max: 79.5 cm/sec MVA(P1/2t): 3.0 cm2 121.9 cm/sec MV E/A: 1.2 MV dec slope: 382.5 cm/sec2 MV dec time: 0.25 sec PA V2 max: TR max sumanth: MV P1/2t-pr_phl: 96.3 cm/sec 213.9 cm/sec 74.1 msec PA max PG: TR max P.3 mmHg 3.7 mmHg Left Ventricle The left ventricle is normal in size. There is normal left ventricular wall thickness. LV EF is > than 65%. The left ventricular ejection fraction is within normal limits. Doppler measurements suggest normal left ventricular diastolic function. The left ventricular wall motion is normal. There is no thrombus. There is no ventricular septal defect visualized. Right Ventricle The right ventricle is normal in size and function. The right ventricle is not well visualized secondary to technical limitations. Atria The right atrium is normal. The left atrial size is normal. The interatrial septum is intact with no evidence for an atrial septal defect. There is no Doppler evidence for an interatrial shunt. Mitral Valve There is no evidence of mitral valve prolapse. There is no vegetation seen on the mitral valve. There is no mitral valve stenosis. There is no mitral regurgitation noted. Aortic Valve There is no aortic valvular vegetation. There is no aortic valve stenosis. There is no LVOT obstruction. No aortic regurgitation is present. Tricuspid Valve There is no tricuspid stenosis. There is a trace to mild amount of tricuspid regurgitation. Right ventricular systolic pressure is normal. RVSP is 23 to 28 mm of Hg , with RA mean of 5 to 10. Pulmonic Valve There is no pulmonic valvular stenosis. There is no pulmonic valvular regurgitation. Great Vessels The aortic root is normal size. The inferior vena cava appeared normal and decreased > 50% with respiration (RAP 5-10 mmHg). Effusions There is no pericardial effusion. : IVÁN ZAMORANO > Kamryn Coello
== END 2018-07-02 17:10 | disposition home health service (06) ==
LOC: INTOOBSV 13:39 → 3S 13:39
PROVIDERS: ADMIT Internal Medicine; ATTEND Internal Medicine
DX: G51.0 Bell's palsy (principal); I10 Essential (primary) hypertension; E11.9 Type 2 diabetes mellitus without complications; Z79.4 Long term (current) use of insulin; E66.01 Morbid (severe) obesity due to excess calories; Z68.42 Body mass index [BMI] 45.0-49.9, adult; G47.33 Obstructive sleep apnea (adult) (pediatric); Z87.891 Personal history of nicotine dependence; Z88.6 Allergy status to analgesic agent; Z88.0 Allergy status to penicillin
CPT/HCPCS: 36415 ×2; 82553 ×2; 82962 ×2; 82803; 82550 ×2; 85025 ×2; 85610; 85730; 80076; 80048; 80053; 81001; 84484 ×2; 83036 ×2; 80061; 93306; 93880; 70551; 93005 ×2; 93010 ×2; 36600; J3490 ×7; J1815; J1650 ×2